=== PATIENT | male | born 1955 | race Caucasian/White ===

== ENCOUNTER 2020-09-03 11:25 | Outpatient (CLI) | payer MEDICARE, OTHER, SELFPAY ==
--- NOTE | ~2020-09-03 | XR_ITS ---
XR shoulder RT min 2V DATE: 09/03/2020 11:43 INDICATION: Right shoulder pain. No injury. TECHNIQUE: 4 views COMPARISON: None FINDINGS: Diffuse osteopenia. No fracture or dislocation, periosteal reaction or bone destruction or abnormal soft tissue calcification. Normal alignment at the right acromioclavicular and glenohumeral joints. There is mild dextroscoliosis of the upper thoracic spine as well as degenerative spurring. IMPRESSION: Osteopenia Dextro scoliosis and degenerative spurring of the upper thoracic spine Reviewed, dictated and finalized at location B. MENDER
== END 2020-09-03 11:26 | disposition home or self-care (01) ==
PROVIDERS: PCP Internal Medicine; Visit Provider Nurse Practitioner
DX: M85.811 Other specified disorders of bone density and structure, right shoulder (principal); M85.88 Other specified disorders of bone density and structure, other site
CPT/HCPCS: 73030

== ENCOUNTER 2020-09-09 08:10 | Outpatient (CLI) | payer MEDICARE, OTHER, SELFPAY ==
--- NOTE | ~2020-09-09 | MR_ITS ---
EXAMINATION: MR shoulder RT wo con DATE: 09/09/2020 09:09 INDICATION: Right shoulder pain and limited range of motion. TECHNIQUE: Magnetic resonance imaging (MRI) of the right shoulder was performed without intravenous c ontrast. Sequences included axial PD-weighted FS FSE, coronal oblique PD-weighted FS FSE, coronal obl ique T2-weighted FS FSE, sagittal PD-weighted FS FSE, and sagittal T1-weighted SE. COMPARISON: None. FINDINGS: Coracoacromial arch: The acromion undersurface is curved in morphology (type II). The coracoacromial ligament is normal. M ild acromioclavicular osteoarthritis. Rotator cuff: Moderate supraspinatus and infraspinatus tendinopathy with large full-thickness tear of the supraspin atus tendon and color near full-thickness tear of the infraspinatus tendon with suggestion of a few r esidual intact bursal sided infraspinatus tendon fibers which are of uncertain functional integrity. There is a small amount of residual frayed tendon material along the superior and middle facet footpl ates with the tear appearing to occur in the critical zone approximately 1 cm from the greater tubero sity footplate. The medial supraspinatus an infraspinatus tear margins are retracted approximately 1. 5 cm medially to approximately the level of the lateral rim of the acromion. The teres minor tendon i s normal. Mild subscapularis tendinopathy without discrete tear. Normal rotator cuff muscle bulk and signal. Biceps tendon, glenoid labrum and glenohumeral cartilage: Moderate tendinopathy and longitudinal split tearing of the long head biceps tendon centered at the j unction of the intra-articular and extra-articular portions of the tendon. There is a tear of the 12: 00-10:30 position of the posterior superior glenoid labrum. Glenohumeral cartilage is normal. Fluid: Physiologic amount of fluid in the glenohumeral joint and biceps tendon sheath. No loose osteochondra l bodies. Fluid in the subacromial/subdeltoid bursa likely arising from the glenohumeral joint space and extending through the full-thickness rotator cuff tear. The fluid also tracks medially along the periphery of the supraspinatus and infraspinatus muscle bellies. Bones: Cystic changes and marrow edema along the superior facet and more prominently along the middle facet of the greater tuberosity. Marrow signal is otherwise normal. No fracture or pathologic marrow replac ing process. IMPRESSION: 1. Likely relatively recent full-thickness tear at the critical zone of the supraspinatus tendon whic h extends posteriorly with full or near full-thickness infraspinatus tendon tear with possibly a few residual intact bursal sided infraspinatus tendon fibers. 2. SLAP tear at the posterior superior glenoid labrum. 3. Moderate tendinopathy and longitudinal split tearing of the long head biceps tendon. Reviewed, dictated and finalized at location A. ING MACHINE TENDER IMPRESSION: 1. Likely relatively recent full-thickness tear at the critical zone of the sup raspinatus tendon which extends posteriorly with full or near full-thickness in fraspinatus tendon tear with possibly a few residual intact bursal sided infras pinatus tendon fibers. 2. SLAP tear at the posterior superior glenoid labrum. 3. Moderate tendinopathy and longitudinal split tearing of the long head biceps tendon.
== END 2020-09-09 08:11 | disposition home or self-care (01) ==
PROVIDERS: PCP Internal Medicine; Visit Provider Nurse Practitioner
DX: S43.431A Superior glenoid labrum lesion of right shoulder, initial encounter (principal); X58.XXXA Exposure to other specified factors, initial encounter
CPT/HCPCS: 73221

== ENCOUNTER → 2020-09-25 01:04 | Outpatient (CLI) | payer MEDICARE, OTHER, SELFPAY ==
[2020-09-25 18:53] LABS: SARS-CoV-2 RNA PCR Negative
== END ==
PROVIDERS: PCP Internal Medicine; Visit Provider Orthopaedic Surgery
DX: Z01.812 Encounter for preprocedural laboratory examination (principal); Z20.822 Contact with and (suspected) exposure to COVID-19
CPT/HCPCS: C9803; U0003; U0005

== ENCOUNTER 2020-09-25 08:52 | Outpatient (CLI) | payer MEDICARE, OTHER, SELFPAY ==
--- NOTE | 2020-09-25 | ECG_ITS ---
Measurements Intervals [place] Rate: 61 P: 53 MO: 269 QRS: -22 QRSD: 128 T: 8 QT: 442 QTc: 446 Interpretive Statements SINUS RHYTHM WITH FIRST DEGREE AV BLOCK INCOMPLETE RIGHT BUNDLE BRANCH BLOCK ABNORMAL ECG Electronically Signed On 09-25-2020 11:58:59 DIRECTOR MEDICAL WRITING by lAex Adler D.O.
[2020-09-25 10:05] LABS: Anion Gap 4 mmol/L (8-16); Blood Urea Nitrogen 18 mg/dL (9-20); Calcium 9.1 mg/dL (8.4-10.2); Carbon Dioxide 30 mmol/L (22-30); Chloride 102 mmol/L (98-107); Estimated Glomerular Filt Rate > 60; Glucose 115 mg/dL (75-110); Sodium 136 mmol/L (137-145)
== END 2020-09-25 08:53 | disposition home or self-care (01) ==
PROVIDERS: PCP Internal Medicine; Visit Provider Anesthesiology
DX: E11.9 Type 2 diabetes mellitus without complications (principal); Z01.818 Encounter for other preprocedural examination; I44.0 Atrioventricular block, first degree
CPT/HCPCS: 36415; 80048; 93005; C9803; U0003; U0005

== ENCOUNTER 2020-09-27 12:08 | Outpatient (CLI) | payer MEDICARE, OTHER, SELFPAY ==
[2020-09-27 12:35] LABS: Basophils Percent Auto 0.3 % (0.2-1.2); Eosinophils Absolute Auto 0.1 K/mm3 (0-0.3); Eosinophils Percent Auto 1.3 % (0-4.4); Hematocrit 42.1 % (42.0-52.0); Immature Granulocyte Absolute 0.04 K/mm3 (0.00-0.031); Immature Granulocyte Percent A 0.6 % (0-0.5); Lymphocytes Absolute Auto 1.47 K/mm3 (0.9-3.2); Lymphocytes Percent Auto 21.1 % (18.3-44.2); Mean Corpuscular HGB Conc 33.3 g/dl (32-36); Mean Corpuscular Hemoglobin 30.6 pg (26-34); Mean Corpuscular Volume 91.9 fl (80-100); Mean Platelet Volume 9.1 fl (7.4-10.4); Monocytes Absolute Auto 0.5 K/mm3 (0.1-0.6); Monocytes Percent Auto 7.3 % (2.6-8.5); Neutrophils Absolute Auto 4.9 K/mm3 (1.3-6.7); Neutrophils Percent Auto 69.4 % (45.5-73.1); Platelet Count Result 239 k/mm3 (150-375); Red Blood Count 4.58 M/mm3 (4.6-6.20); Red Cell Distribution Width 13.6 % (11.5-14.5)
[2020-09-27 12:51] LABS: Alanine Aminotransferase 25 U/L (4-50); Albumin Level 4.5 g/dL (3.5-5.1); Alkaline Phosphatase 118 U/L (38-126); Anion Gap 5 mmol/L (8-16); Aspartate Amino Transferase 27 U/L (17-59); Bilirubin,Total 0.4 mg/dL (0.2-1.3); Blood Urea Nitrogen 12 mg/dL (9-20); Calcium 9.1 mg/dL (8.4-10.2); Carbon Dioxide 29 mmol/L (22-30); Chloride 104 mmol/L (98-107); Estimated Glomerular Filt Rate > 60; Glucose 116 mg/dL (75-110); Potassium 4.6 mmol/L (3.4-5.0); Sodium 138 mmol/L (137-145)
[2020-09-27 13:21] LABS: Hemoglobin A1C 6.1 % (<5.7)
== END 2020-09-27 12:09 | disposition home or self-care (01) ==
LOC: ANHLAB 12:16
PROVIDERS: PCP Internal Medicine; Visit Provider Clinical Nurse Specialist
DX: E11.9 Type 2 diabetes mellitus without complications (principal)
CPT/HCPCS: 36415; 80053; 83036; 85025

== ENCOUNTER 2020-09-29 00:24 | Day surgery (SDC) | payer MEDICARE, OTHER, SELFPAY ==
[2020-09-24 12:06] VITALS: BMI 34.0
[2020-09-29] VITALS (7 sets, daily range): BP systolic 138–160; BP diastolic 81–95; PULSE 67–80; RESP 11–17; TEMP 35.8–36.3; O2SAT 93–99
--- NOTE | 2020-09-29 07:22 | WPDHPUPDATE1 ---
History and Physical Update Update Date/Time: 09/29/20 07:22 History and Physical has been reviewed, including an updated exam of the patient. There are NO changes in the patient's condition. Risks, benefits, and alternatives have been discussed and questions answered. Patient agrees to proceed with procedure.
--- NOTE | 2020-09-29 10:34 | WPDANESEPPF ---
Anes - Initial Pre Proc Eval Procedure: Operation Date: 09/29/20 12:00 Proposed Procedures p Right Open Rotator Cuff Repair Acromioplasty With Possible Bicep Tenodesis - Fawad Oliver MD Date/Time: 09/29/20 10:34 Surgeon: Fawad Oliver MD Pre Op Diagnosis: Right Rotator Cuff Tear Patient Data Age: 65 Gender: M Height: 1.75 m Weight: 104.33 kg Allergies Allergy/AdvReac Type Severity Reaction Status Date / Time No Known Allergies Allergy Verified 09/29/20 10:37 Home Medications Medication Instructions Recorded Confirmed Type morphine 15 mg immediate release 15 mg PO PRN PRN tablet 07/01/19 09/27/20 History tablet morphine 30 mg immediate release 30 mg PO PRN PRN tablet 07/01/19 09/27/20 History tablet aspirin 81 mg tablet,delayed 81 mg PO DAILY #90 tablet 04/21/20 09/27/20 Rx release metformin 500 mg tablet 500 mg PO DAILY #90 tablet 06/07/20 09/27/20 Rx omeprazole 20 mg capsule,delayed 20 mg PO DAILY #90 cap 06/07/20 09/27/20 Rx release lisinopril 20 mg tablet 20 mg PO DAILY #90 tablet 06/08/20 09/27/20 Rx chlorhexidine gluconate 4 % 1 applic TOPICAL ONCE #237 ml 09/23/20 09/27/20 Rx topical liquid amlodipine 5 mg PO QPM 09/24/20 09/27/20 History cholecalciferol (vitamin D3) 50 mcg PO DAILY 09/24/20 09/27/20 History ibuprofen 400 mg PO Q6H PRN 09/24/20 09/27/20 History Patient hx anesthesia problems: none Family hx anesthesia problems: none PMFSH Past Medical History Medical History (Updated 09/27/20 @ 14:37 by MICH Guy) Arthritis Back pain Fractured rib Full thickness rotator cuff tear Hearing loss Heart murmur Heartburn High cholesterol Hyperlipidemia Hypertension Mitral valve insufficiency Pulmonary embolism 03/19/2018 Type 2 diabetes mellitus Wears glasses Surgical History Surgical History History of appendectomy Family History Family History (Updated 09/23/20 @ 11:46 by Maggi Becker RT(R)) Mother Diabetes mellitus Father Hypertension Acute myocardial infarction, Onset Age: 55 Other Depression Heart disease High cholesterol Social History Social History (Updated 09/23/20 @ 11:46 by Maggi Becker RT(R)) Smoking packs per day: 2 Smoking cigarettes per day: 40.0 Years smoked: 10 Smoking pack-years: 20.00 Smoking status: Former smoker Tobacco type: cigarettes and cigars Smoking end date: 07/16/79 Alcohol intake: current Drinks per week: 2 Substance use: former Substance use type: marijuana Last use: 1969 Living arrangements: with family Gender identity (if verbalized by the patient): Male Spiritual care concerns: No Anes - Eval Final PreProcedure Day of Procedure 09/29/20 10:34 Patient weight: obese Heart: regular rate and rhythm Lungs: clear to auscultation and normal air movement Airway: Mallampati scale class II Neurological: alert and oriented Last oral intake: >/= 8 hours ASA classification: III Emergent: no Anesthetic plan: proceed Anesthesia type and monitoring: general ETT and standard monitoring Informed Consent: The patient's anesthetic plan and its attendant risks and benefits were discussed with the patient/family/POA. Questions were solicited and answers provided to the satisfaction of the patient/family/POA.
--- NOTE | 2020-09-29 10:35 | WPDANESPNB ---
Anes - Peripheral Nerve Block Date/Time: 09/29/20 10:35 I have discussed with the patient/family/POA the placement of a peripheral nerve block for post-operative pain management, including associated risks, benefits, complications, and side effects. Alternative methods of post-operative analgesia were detailed. Questions were solicited and answers provided to the satisfaction of the patient/family/POA. Time-Out: A pre-procedural Time-Out was completed immediately before starting the procedure and confirmed: Patient Identification, Site, Procedure, Patient Position and the Availability of Requisite Equipment. Clinical Indications: Acute post-operative pain management requested by the operative surgeon. Nerve Block Insertion Note Anes-nerve block: interscalene right Patient position: supine Skin prep: chlorhexidine Needle: 22 gauge, stimulating, insulated echogenic needle. Needle length: 50 mm Technique: ultrasound Injectate: bupivacaine 0.5% with epi 5 mcg/ml (30cc- no epi) Observations: tolerated well Complications: none Procedure start time:: 1154 Procedure end time:: 1158
[2020-09-29] MEDS: CELECOXIB 200 MG CAPSULE PO (10:50)
[2020-09-29] MEDS: ACETAMINOPHEN 500 MG TABLET 1000 MG PO (10:50)
[2020-09-29] MEDS: LACTATED RINGERS 1,000 ML 30 ML IV CONT ×2 (11:00→16:23)
[2020-09-29 11:20] LABS: Glucose Point of Care 127 (65-105)
[2020-09-29] MEDS: ceFAZolin 2 GM/D5W 50 ML 2 GM/50 ML BAG IVPB (12:52)
--- NOTE | 2020-09-29 16:10 | PM.PROC ---
Procedure Note - Detailed Date of procedure: 09/29/20 Pre-op diagnosis: Right Rotator Cuff Tear Post-op diagnosis: same Procedure performed: REPAIR OF RIGHT ROTATOR CUFF Description of procedure: THE PATIENT WAS TAKEN TO THE OPERATING ROOM AND THEN INTUBATED AND PLACED IN THE BEACH CHAIR POSITION. THE RIGHT UPPER EXTREMITY WAS PREPPED AND DRAPED IN THE NORMAL STERILE FASHION. AN INCISION WAS MADE IN BETWEEN THE TESSA-LATERAL ACROMION AND THE AC JOINT. THE AC JOINT WAS INCISED. THERE WAS SEVERE DJD TO THE AC JOINT. A DISTAL CLAVICLE EXCISION WAS PREFORMED REMOVING ABOUT O.5 CM FRO THE DISTAL CLAVICLE. OSTEOPHYTES WERE REMOVED FROM THE UNDER SURFACE OF THE DISTAL CLAVICLE WELL. THE WOUND WAS IRRIGATED. THE CAPSULE WAS APPROXIMATED WITH 0 VICRYL SUTURE. NEXT THE DELTOID FASCIA WAS IDENTIFIED. A MINI OPEN INCISION WAS MADE THROUGH THE DELTOID MUSCLE EXPOSING THE SUBACROMIAL SPACE. A LIMITED ACROMIOPLASTY WAS PREFORMED. THERE WAS AN EXTENSIVE AMOUNT OF BURSITS AND SCAR TISSUE ABOUT THE CUFF SURFACE ABD THE SUB ACROMIAL SPACE. DIGITAL ADHESIOLYSIS WAS PREFORMED AND BURSECTOMY WELL. THE ROTATOR CUFF WAS IDENTIFIED. THERE WAS A FULL THICKNESS TEAR. THE CUFF WAS COMPLETELY DETACHED FROM THE GREATER TUBEROSITY. THE BICEPS TENDON WAS IDENTIFIED. IT WAS INTACT. THERE WAS NO TEAR OR SIGNIFICANT FRAYING. THE GREATER TUBEROSITY WAS DEBRIDED TO BLEEDING BONE. 3 ARTHREX 5.5 SUTURE ANCHORS WERE PLACED IN TO GOOD BONE AND HAD VERY GOOD BITES. EUSEBIO-OSCAR TYPE REPAIRS WERE DONE TO THE ROTATOR CUFF AND THERE WAS GOOD APPROXIMATION TO THE GREATER TUBEROSITY. THE REPAIR WAS EXCELLENT. THERE WAS NO IMPINGEMENT ON THE REPAIR FROM THE ACROMION WITH RANGE OF MOTION. THE WOUND WAS IRRIGATED WITH COPIOUS AMOUNTS OF ANTIBIOTIC SOLUTION. THE DELTOID MUSCLE WAS REPAIRED WITH #2 FIBER WIRE AND NUMBER 1 VICRYL SUTURE. THE SUBCUTANEOUS LAYER WAS APPROXIMATED WITH 2-0 VICRYL. THE SKIN WAS APPROXIMATED WITH 3-0 QUIL AND DERMABOND. STERILE DRESSING WAS APPLIED. PATIENT WAS EXTUBATED. Anesthesia: GETA Surgeon: Fawad Oliver MD Estimated blood loss (mL): 20 Complications: No immediate complications Condition: stable Disposition: PACU
[2020-09-29 16:37] LABS: Glucose Point of Care 82 (65-105)
== END 2020-09-29 17:45 | disposition home or self-care (01) ==
PROVIDERS: PCP Internal Medicine; Visit Provider Orthopaedic Surgery
PROC: (CPT 23420; principal; 2020-09-29 12:00)
DX: M75.121 Complete rotator cuff tear or rupture of right shoulder, not specified as traumatic (principal); G89.18 Other acute postprocedural pain; I10 Essential (primary) hypertension; E78.5 Hyperlipidemia, unspecified; E11.9 Type 2 diabetes mellitus without complications; I34.0 Nonrheumatic mitral (valve) insufficiency; Z86.711 Personal history of pulmonary embolism; Z79.82 Long term (current) use of aspirin; Z87.891 Personal history of nicotine dependence; E66.9 Obesity, unspecified; Z68.32 Body mass index [BMI] 32.0-32.9, adult; Z79.84 Long term (current) use of oral hypoglycemic drugs
CPT/HCPCS: 23420; 23120; 64415; 82948; A9270; C1713; J0330; J0690; J2250; J2405; J2704; J3010; J7120

== ENCOUNTER 2020-10-21 15:04 | Outpatient (CLI) | payer MEDICARE, OTHER, SELFPAY | END 2020-10-21 15:05 | disposition home or self-care (01) | LOC: ANHCOVIDVC 15:04 | PROVIDERS: PCP Internal Medicine | DX: Z23 Encounter for immunization (principal) | CPT/HCPCS: 0001A; 91300 ==

== ENCOUNTER 2020-11-11 14:37 | Outpatient (CLI) | payer MEDICARE, OTHER, SELFPAY | END 2020-11-11 14:38 | disposition home or self-care (01) | LOC: ANHCOVIDVC 14:37 | PROVIDERS: PCP Internal Medicine | DX: Z23 Encounter for immunization (principal) | CPT/HCPCS: 0002A; 91300 ==

== ENCOUNTER 2021-01-10 08:00 | Outpatient (RCR) | payer MEDICARE, OTHER, SELFPAY ==
[2020-10-13 08:30] VITALS: BP_SYST 62
--- NOTE | 2020-10-13 10:02 | PTOPEVAL ---
INITIAL PHYSICAL THERAPY EVALUATION and PLAN OF CARE Thank you for referring Ronnell Mcbride to [facility].? Hakan is scheduled to be seen for physical therapy? 2-3x/week for 3 weeks, 2x/wk x 3 wks. Please review, sign, date and return this plan of care ZAC. I agree with and certify that the following plan of care is medically necessary. Referring Physician Date Admitting Provider: Attending Provider: Fawad Oliver MD Referring Provider: *PT Outpatient Evaluation Start: 10/13/20 08:31 Freq: Status: Active Protocol: Document 10/13/20 08:30 ANGÉLICA (Rec: 10/13/20 10:01 ANGÉLICA [id number]) Therapy Assessment Status Assessment Status Assessment Status Evaluation Outpatient Past Medical History Past Medical History Source of Past Medical History Recalled from Previous Visit, Confirmed with Patient/Family Neurological History Hx Neurological Disorders No Significant History Cardiovascular History Hx Hypercholesterolemia Yes Hx Hypertension Yes Hx Other Cardiac Disorders Yes: DR PANDYA EVERY 6 MONTHS Respiratory History Hx Pulmonary Embolism Yes: 03/19/18 Gastrointestinal History Hx Appendectomy Yes Hx Gastroesophageal Reflux Disease Yes Genitourinary History Hx Other Genitourinary Disorders Yes: FREQUENT URINATION Musculoskeletal History Hx Arthritis Yes: GENERALIZED Hx Back Pain Yes: CHRONIC BACK PAIN-PAIN MANAGEMENT ONCE A MONTH Hx Crutches or Walker Use Yes: CRUTCHES Query Text:If Yes, Enter Crutches, Walker, or Both in the Comment Hx Fractures Yes: 1972 FX LT ANKLE Hx Orthopedic Surgery Yes: R RCR with DCE 09/29/2020 Hx Other Musculoskeletal Disorders Yes: RT ROTATOR CUFF TEAR Hematological History Hx Hematological Disorders No Significant History Endocrine History Hx Diabetes Yes HEENT History Hx Other HEENT Disorders Yes: READING GLASSES.[employer]IL[employer] HEARING AIDS Integumentary History Hx Skin Disorders No Significant History Reproductive History Hx Reproductive Disorders No Significant History Psychosocial History Hx Psychiatric Disorders No Significant History Pain History Has Past Pain Affected Your Daily Life Yes: BACK PAIN History of Long-Term Prescription Pain Yes: 5 YEARS Medication Use (Opiates) Anesthesia History Hx Anesthesia Reactions No Significant History Evaluation Information Problem Diagnosis s/p R RTC repair with distal clavicle excision Onset 09/29/2020 Cause fall 09/02/2020 Subjective Information Fell onto R shoulder - was Query Text: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 Not Family
[2020-11-08 08:21] VITALS: BP_SYST 94
[2020-11-24 08:03] VITALS: BP_SYST 105
--- NOTE | 2020-11-24 09:07 | PTOPEVAL ---
PHYSICAL THERAPY RE-EVALUATION and UPDATED PLAN OF CARE Thank you for referring Ronnell Mcbride to [facility].? Hakan is making progress towards goals - but has not met goals. He will continue to benefit from skilled PT for further gains with ROM, strength, and function. Hakan is scheduled to be seen for physical therapy? 2x/week for 4 weeks. Please review, sign, date and return this plan of care ZAC. I agree with and certify that the following plan of care is medically necessary. Referring Physician Date Admitting Provider: Attending Provider: Fawad Oliver MD Referring Provider: Therapy Assessment Status Assessment Status Assessment Status Re-evaluation Pain Assessment Self Report Pain Assessment Right Shoulder(s) Reported Pain Level 8 Pain Description Soreness,Tightness Other Pain Description stiff Lowest Pain Intensity 5 Greatest Pain Intensity 10 Upper Extremity Range of Motion Scapular/ Shoulder Range of Motion Right Shoulder Flexion - Active 112 Shoulder Flexion - Passive 132 Shoulder Extension - Active 45 Shoulder Extension - Passive 60 Shoulder Abduction - Active 95 Shoulder Abduction - Passive 105 Shoulder Medial Rotation - Active 45 Shoulder Medial Rotation - Passive 65 Shoulder Lateral Rotation - Active 22 Shoulder Lateral Rotation - Passive 32 Scapular/Shoulder Range of Motion ER in neutral - active - 37 Comments deg passive 67 passive ROM done in standing pulleys - flexion 135 abduction 115 Upper Extremity Muscle Strength Testing Scapular/Shoulder Right Shoulder Flexion Strength 3 Fair Shoulder Extension Strength 4 Good Shoulder Abduction Strength 3 Fair Shoulder Medial Rotation Strength 4+ Good + Shoulder Lateral Rotation Strength 3 Fair Shoulder Strength Comments reduced range motion used PT Clinical Summary Clinical Summary Protocol: PTEVCODE PT Clinical Summary SPADI pain score - 96% disability score - 73% total score - 82% Hakan is making progress towards goals - but has not reached goals set. Still reduced ROM R g-h jt - passive and active. He is gaining scapular, deltoid, and RTC strength. Pain levels still remain elevated and still decreased functional abilities with R UE above waist level. He will continue to benefit from skilled PT to promote further ROM, strength and functi
--- NOTE | 2020-12-22 09:42 | PCPTNOTE ---
Patient called & cancelled scheduled appointment this date due to inability to make appointment.
[2020-12-27 08:05] VITALS: BP_SYST 123
--- NOTE | 2020-12-27 12:18 | PTOPEVAL ---
PHYSICAL THERAPY RE-EVALUATION and UPDATED PLAN OF CARE Thank you for referring Ronnell Mcbride to [facility].? Hakan has been seen x 24 visits. He continues to make ROM and scapular strength gains. He still needs to increased deltoid and RTC strength as well as become more functional with activities at shoulder level and above. He is scheduled to continue with physical therapy? 2x/week for 4 weeks. Please review, sign, date and return this plan of care ZAC. I agree with and certify that the following plan of care is medically necessary. Referring Physician Date Admitting Provider: Attending Provider: Fawad Oliver MD Referring Provider: Therapy Assessment Status Assessment Status Assessment Status Re-evaluation Evaluation Information Problem Diagnosis s/p R RTC repair with distal clavicle excision Subjective Information Hakan reports that he still has Query Text:As Reported By Patient/ a lot of soreness and Family tightness with R shoulder. Decreased ability to perform activities at shoulder height and overhead, but okay below shoulder height and at waist level. 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 Pain Assessment Self Report Pain Assessment Right Shoulder(s) Reported Pain Level 8 Pain Description Soreness,Tightness Lowest Pain Intensity 5 Greatest Pain Intensity 10 Pain Aggravating Factors Exercise/Activity Pain Behaviors None Additional Pain Comments some grimacing with end range activities Upper Extremity Range of Motion Scapular/ Shoulder Range of Motion Right Shoulder Flexion - Active 120 Shoulder Flexion - Passive 135 Shoulder Extension - Active 50 Shoulder Abduction - Active 123 Shoulder Abduction - Passive 123 Shoulder Medial Rotation - Active 65 Shoulder Medial Rotation - Passive 80 Shoulder Medial Rotation - Active L1 Query Text:Reach Behind the Back Shoulder Lateral Rotation - Active 34 Shoulder Lateral Rotation - Passive 45 Shoulder Lateral Rotation - Active back of neck Query Text:Reach Behind the Head Scapular/Shoulder Range of Motion ER in neutral - active - 35 Comments deg passive 42 passive ROM done in standing except for rotation which was done in supine pulleys - flexion 150 abduction 134 with active motion - altered g -h jt mechanics - increase with sc
--- NOTE | 2021-01-10 12:58 | PCPTNOTE ---
This treatment is being continued on visit number [id number]. Please see documentation on both accounts to view progress. Completed interventions, outcomes, and problems have been marked as Inactive to facilitate the copying of the Care plan routine for recurring accounts.
== END 2021-01-10 09:09 | disposition still patient (30) ==
LOC: ANHHIPT 08:00
PROVIDERS: PCP Internal Medicine; Visit Provider Orthopaedic Surgery
DX: Z47.89 Encounter for other orthopedic aftercare (principal)
CPT/HCPCS: 97035; 97110; 97140; 97161

== ENCOUNTER 2021-01-19 08:00 | Outpatient (RCR) | payer MEDICARE, OTHER, SELFPAY ==
[2021-01-10 09:09] VITALS: BP_SYST 123
--- NOTE | 2021-01-10 12:59 | PCPTNOTE ---
The treatment documented on this account is a continuation of the treatment documented on visit number [id number]. Please see documentation on both accounts to view progress. The Plan of Care has been transitioned and updated within the new V#. I have addressed and agree with the discipline specific Problems, Interventions, and Goals for the current certification period. Completed interventions, outcomes, and problems have been marked as Inactive to facilitate the copying of the Care plan routine for recurring accounts.
[2021-01-19 08:05] VITALS: BP_SYST 137
--- NOTE | 2021-01-19 09:04 | PTOPEVAL ---
PHYSICAL THERAPY DISCHARGE SUMMARY Thank you for referring Ronnell Mcbride to [facility].? Ronnell has been seen x 30 visits. He has progressed well towards goals set, but did not fully reach all of the goals. He is ready for d/c from PT to HEP. I agree with Ronnell's discharge from PT. Referring Physician Date Admitting Provider: Attending Provider: Fawad Oliver MD Referring Provider: Therapy Assessment Status Assessment Status Assessment Status Discharge Evaluation Information Problem Diagnosis s/p R RTC repair with distal clavicle excision Subjective Information Hakan reports that his R Query Text:As Reported By Patient/ shoulder feels tight, still Family hurts when goes out of range . States that he is still unable to sleep on R side, but that he can do most everything that he needs to do with the R arm. Still working on stretching arm at work with pressure wand. Pain Assessment Timing of Pain Assessment Timing of Pain Assessment Assessment Pain Scale Pain Scale Used Numeric (1 - 10) Self Report Pain Assessment Right Shoulder(s) Reported Pain Level 0 Lowest Pain Intensity 0 Greatest Pain Intensity 8 Additional Pain Comments stretching behind back is the worst position Upper Extremity Range of Motion Scapular/ Shoulder Range of Motion Right Shoulder Flexion - Active 130 Shoulder Flexion - Passive 155 Shoulder Extension - Active 42 Shoulder Abduction - Active 122 Shoulder Abduction - Passive 137 Shoulder Medial Rotation - Active 56 Shoulder Medial Rotation - Passive 70 Shoulder Medial Rotation - Active L5 Query Text:Reach Behind the Back Shoulder Lateral Rotation - Active 38 Shoulder Lateral Rotation - Passive 52 Shoulder Lateral Rotation - Active back of head Query Text:Reach Behind the Head Scapular/Shoulder Range of Motion ER in neutral - 47 deg Comments Upper Extremity Muscle Strength Testing Scapular/Shoulder Right Shoulder Flexion Strength 3+ Fair + Shoulder Extension Strength 5 Normal Shoulder Abduction Strength 3 Fair Shoulder Medial Rotation Strength 5 Normal Shoulder Lateral Rotation Strength 4+ Good + Shoulder Strength Comments supraspinatus - 3 infraspinatus - 3+ Palpation Assessment Palpation Palpation No tenderness at R supraspinatus or R infraspinatus tendons. Increase tenderness at R long
== END 2021-01-21 15:35 | disposition home or self-care (01) ==
LOC: ANHHIPT 08:00
PROVIDERS: PCP Internal Medicine; Visit Provider Orthopaedic Surgery
DX: Z47.89 Encounter for other orthopedic aftercare (principal)
CPT/HCPCS: 97110; 97140

== ENCOUNTER 2021-12-28 09:02 | Outpatient (CLI) | payer MEDICARE, OTHER, SELFPAY ==
--- NOTE | ~2021-12-28 | XR_ITS ---
XR hip LT 2V w AP pelvis DATE: 12/28/2021 09:21 INDICATION: Left hip pain TECHNIQUE: AP pelvis. AP and lateral views of left hip COMPARISON: None FINDINGS: No pelvic fracture or bone destruction is detected. The pubic symphysis and sacroiliac join ts are intact. There is bilateral hip osteoid arthritis, moderate on the right, severe on the left, including promin ent joint space narrowing and spurring at the left hip joint. No fracture or dislocation, avascular necrosis or bone destruction of the left hip is noted. IMPRESSION: Bilateral hip osteophytes, severe on the left Reviewed, dictated and finalized at location A.
== END 2021-12-28 09:03 | disposition home or self-care (01) ==
PROVIDERS: PCP Internal Medicine; Visit Provider Nurse Practitioner Family
DX: M16.0 Bilateral primary osteoarthritis of hip (principal)
CPT/HCPCS: 73502

== ENCOUNTER 2023-02-22 09:18 | Outpatient (CLI) | payer MEDICARE, OTHER, SELFPAY ==
[2023-02-22 16:06] LABS: Basophils Absolute Auto 0.1 K/mm3 (0.0-0.1); Basophils Percent Auto 0.9 % (0.2-1.2); Eosinophils Absolute Auto 0.3 K/mm3 (0-0.3); Eosinophils Percent Auto 3.5 % (0-4.4); Hematocrit 38.6 % (42.0-52.0); Hemoglobin 11.9 g/dL (14.0-18.0); Immature Granulocyte Absolute 0.04 K/mm3 (0.00-0.031); Immature Granulocyte Percent A 0.5 % (0-0.5); Immature Platelet Fraction Pct 2.1 % (0.9-11.2); Lymphocytes Absolute Auto 1.09 K/mm3 (0.9-3.2); Lymphocytes Percent Auto 14.8 % (18.3-44.2); Mean Corpuscular HGB Conc 30.8 g/dl (32-36); Mean Corpuscular Volume 97.2 fl (80-100); Mean Platelet Volume 9.8 fl (7.4-10.4); Monocytes Absolute Auto 0.5 K/mm3 (0.1-0.6); Neutrophils Absolute Auto 5.4 K/mm3 (1.3-6.7); Neutrophils Percent Auto 73.3 % (45.5-73.1); Nucleated Red Blood Cells Absolute Auto 0.1 K/mm3 (0.0-0.012); Nucleated Red Blood Cells Perc 0.8 % (0.0-0.2); Platelet Count Result 352 k/mm3 (150-375); Red Blood Count 3.97 M/mm3 (4.6-6.20); Red Cell Distribution Width 14.8 % (11.5-14.5); White Blood Count 7.4 K/mm3 (4.5-10.0)
[2023-02-22 16:30] LABS: Alanine Aminotransferase 31 U/L (6-50); Albumin Level 3.9 g/dL (3.5-5.1); Alkaline Phosphatase 84 U/L (38-126); Anion Gap 4 mmol/L (8-16); Aspartate Amino Transferase 44 U/L (17-59); Bilirubin,Total 0.3 mg/dL (0.2-1.3); Blood Urea Nitrogen 16 mg/dL (9-20); Calcium 8.9 mg/dL (8.4-10.2); Carbon Dioxide 31 mmol/L (22-30); Chloride 101 mmol/L (98-107); Estimated Glomerular Filt Rate > 60; Glucose 108 mg/dL (65-110); Potassium 4.7 mmol/L (3.4-5.0); Sodium 136 mmol/L (137-145)
[2023-02-22 16:35] LABS: Creatinine Urine 44.2 mg/dL
[2023-02-22 16:40] LABS: MALB Creatinine Ratio 33.7 mg/g (0-30); Microalbumin Urine Random 14.9 mg/L (0-16.7)
[2023-02-22 16:53] LABS: Platelet Estimate Adequate (Adequate); Schistocytes None Seen (NORMAL)
[2023-02-22 18:26] LABS: Iron 81 ug/dL (49-181)
[2023-02-22 18:46] LABS: Percent Iron Saturation 20 % (20-50)
[2023-02-22 20:55] LABS: Hemoglobin A1C 6.7 % (<5.7)
== END 2023-02-22 09:19 | disposition home or self-care (01) ==
PROVIDERS: PCP Internal Medicine; Visit Provider Nurse Practitioner
DX: E11.9 Type 2 diabetes mellitus without complications (principal); D64.9 Anemia, unspecified
CPT/HCPCS: 36415; 80053; 82043; 82728; 83036; 83540; 83550; 85025; 85055

== ENCOUNTER → 2023-06-19 10:57 | Outpatient (CLI) | payer MEDICARE, OTHER, SELFPAY ==
--- NOTE | ~2023-06-19 | CT_ITS ---
CT Scan of the Chest without Contrast: Clinical Indication: Lower respiratory infection Technique: Contiguous sections were acquired throughout the chest without intravenous contrast. Dose reduction technique was used on this scan by utilizing automated exposure control and iterative recon struction technique. The dose-length product (DLP) was 649.51 mGy-cm. Findings: There is no evidence of any significant mediastinal, hilar or axillary lymphadenopathy. The mediastin al soft tissues appear normal. There is no evidence of pleural or pericardial effusion. The lungs are clear. No pulmonary nodules or infiltrates are noted. Images through the upper abdomen reveal diffuse fatty infiltration of the liver. Impression: Clear lungs. Diffuse fatty infiltration of liver. Reviewed, dictated and finalized at location M. ATIONS SUPERVISOR 2ND SHIFT Impression: Clear lungs. Diffuse fatty infiltration of liver.
== END ==
PROVIDERS: PCP Clinical Nurse Specialist; Visit Provider Clinical Nurse Specialist
DX: J22 Unspecified acute lower respiratory infection (principal); K76.0 Fatty (change of) liver, not elsewhere classified
CPT/HCPCS: 71250

== ENCOUNTER 2024-01-15 10:15 | Outpatient (RCR) | payer OTHER, SELFPAY ==
--- NOTE | 2023-10-19 09:10 | OTOPEVAL1 ---
Assessment and note entered by Toro Gunter, OTR/Pearl, CHT Evaluation Information Diagnosis S52.201A, S42.294A Onset 09/30/23 Subjective Information Dx: Closed fracture of shaft of right ulna, Closed nondisplaced fracture of proximal end of right humerus s/p ORIF of the ulna. Pt follows up with ortho on Sunday 10/22. Pt to keep arm in splint until then. Pt reports falling from a ladder at work on . He was hospitalized ~5 days. He reports severe pain. He is sleeping in a recliner. States he has been keeping his hand moving. Reported Pain Level Pain Score 8/10, (R) shoulder Assessment OT Clinical Summary Patient referred to OT s/p right proximal humerus fx and right proximal ulna fx. He presents today in a sling and right forearm splint. The forearm splint is to be kept in place until he follows up with ortho next week. Initiated phase I of humerus protocol - pendulums, scapular ROM, and external rotation. Educated on finger ROM and elevation of the UE to help with swelling. Patient to continue to follow up with skilled therapy to progress his HEP, continued therapeutic exercise, modalities, manual therapy, and therapeutic activities to facilitate improved functional use of the right UE and reduced pain. Plan of Care Interventions Therapeutic Exercise,Manual Therapy,Neuro Re- education,Therapeutic Activities,Hot Pack/Cold Pack,Electrical Stimulation,Check Out for Orthotic /Pr OT Services Indicated Yes Treatment Frequency and 1-2x/week for 10 visits Duration These treatments will address the objective and functional deficits as defined above. The patient will be advanced safely and appropriately in order for the patient to progress towards his/her prior level of function. Additional exercises will be introduced and as well as a comprehensive home exercise program upon discharge, if needed, ?to ensure carryover of functional gains achieved in the clinic. This treatment plan has been reviewed and agreement upon by the patient.
--- NOTE | 2023-10-19 09:10 | OPREHPOC ---
Outpatient Therapy Plan of Care This is a Multidisciplinary Plan of Care that may contain components documented by all disciplines (PT, OT, and ST.) OT Problem 1 OT Problem #1 Knowledge Deficit OT Goal 1 Goal 1. Patient to be independent with HEP. Target Visit 10 OT Problem 2 OT Problem #2 Pain OT Goal 1 Goal 1. Patient to be independent with non-medication pain management: - ROM - heat/ice - rest - elevation Target Visit 10 OT Problem 3 OT Problem #3 Impaired Range of Motion OT Goal 1 Goal 1. Patient to increase functional ROM of the (R) shoulder: - shoulder flexion to 90 deg. - shoulder abduction to 90 deg. - shoulder external rotation to be able to touch the back of his head - shoulder internal rotation to be able to touch his low back/sacral area ----Per ortho release/recommendations for the right forearm---- 2. Increase active ROM of the (R) forearm: - supination to 45 deg. - pronation to 45 deg. Target Visit 10 OT Problem 4 OT Problem #4 Impaired Strength OT Goal 1 Goal 1. Be able to complete gross band cutter strengthening with the right hand with yellow theraputty x5 minutes without pain. Target Visit 10
--- NOTE | 2023-12-03 14:48 | OTOPPROG ---
Assessment and note entered by Toro Gunter, OTZulay/Pearl, CHT Evaluation Information Assessment Status Progress Diagnosis S52.201A, S42.294A Onset 09/30/23 Subjective Information Patient has been participating in OT x8 weeks. He reports functional progress in the right UE, reporting that he is now able to use the right hand to feed himself and hold/drink from a coffee cup. 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 Notes deficits with raising the arm and reaching behind the back. Assessment OT Clinical Summary Patient referred to OT s/p right proximal humerus fx and right proximal ulna fx. He has made excellent progress with therapy so far. Today he is able to flex the shoulder 100 degrees and externally rotate to be able to touch the back of his head. Shoulder extension improved to 45, abduction to 75 degrees. He demonstrates limitations into internal rotation, not being able to lay the hand on the low back. Elbow flexion/ extension and forearm pronation are WNL. Supination measuring 45 degrees, which is 15 degrees less than the unaffected side. Wrist/hand ROM is WFL with some residual end range tightness. Patient's HEP has progressed to active, active- assisted, passive, and strengthening for the shoulder. He completes stretches with a cane multiple times a day. Therapy has progressed to all strengthening distally and he is tolerating this well. He continues to demonstrate limitations with gross weakness, stiffness, and pain which is restricting return of functional use. Continued follow up with skilled therapy indicated to continue to progress his HEP, continued therapeutic exercise, modalities, manual therapy, and therapeutic activities to facilitate improved functional use of the right UE and reduced pain. Plan of Care Interventions Therapeutic Exercise,Manual Therapy,Neuro Re- education,Therapeutic Activities,Hot Pack/Cold Pack,Electrical Stimulation OT Services Indicated Yes Treatment Frequency and 1-2x/week for 8 visits Duration These treatments will address the objective and functional deficits as defined above. The patient will be advanced safely and appropriately in order for the patient to progress towards his/her prior level of function. Additional exercises will be introduced and as well as a comprehensive home exercise program upon discharge, if needed, ?to ensure carryover of functional gains achieved in the clinic. This treatment plan has been reviewed and agree
--- NOTE | 2023-12-03 14:49 | OPREHPOC ---
Outpatient Therapy Plan of Care This is a Multidisciplinary Plan of Care that may contain components documented by all disciplines (PT, OT, and ST.) OT Problem 1 OT Problem #1 Knowledge Deficit OT Goal 1 Goal 1. Patient to be independent with HEP. ---OT POC UPDATE 12/03/23--- 1. Met, continue as HEP is progressed. Target Visit 20 OT Problem 2 OT Problem #2 Pain OT Goal 1 Goal 1. Patient to be independent with non-medication pain management: - ROM - heat/ice - rest - elevation ---OT POC UPDATE 12/03/23--- 1. Met, continue to address and treat pain Target Visit 20 OT Problem 3 OT Problem #3 Impaired Range of Motion OT Goal 1 Goal 1. Patient to increase functional ROM of the (R) shoulder: - shoulder flexion to 90 deg. - shoulder abduction to 90 deg. - shoulder external rotation to be able to touch the back of his head - shoulder internal rotation to be able to touch his low back/sacral area ----Per ortho release/recommendations for the right forearm---- 2. Increase active ROM of the (R) forearm: - supination to 45 deg. - pronation to 45 deg. ---OT POC UPDATE 12/03/23--- 1. Patient is progressing with the shoulder, met for shoulder flexion and external rotation, but continues to have limitations into abduction and internal rotation 2. Met Target Visit 20 OT Problem 4 OT Problem #4 Impaired Strength OT Goal 1 Goal 1. Be able to complete gross computer forensic specialist strengthening with the right hand with yellow theraputty x5 minutes without pain. ---OT POC UPDATE 12/03/23--- 1. Met. Upgrade goal: Patient to increase (R) computer forensic specialist
--- NOTE | 2024-01-07 09:05 | OTOPPROG ---
Assessment and note entered by Toro Gunter, JOSE/Pearl, CHT OT Progress Update 01/07/24 Assessment Status Progress Diagnosis S52.201A, S42.294A Onset 09/30/23 Subjective Information Patient has been participating in OT x12 weeks. He reports functional progress in the right UE, reporting he has been able to use the arm for heavier tasks, lifting heavier weight, using a drill, etc. He can lift his trash bag out of the trash can (a month ago his son was coming over to take up his trash). He reports limitations with overhead tasks and being able to internally rotate the shoulder to use the right hand to thread his belt through his belt loops. Overall he is reports having less pain, but he can get his pain up to 10/10 if he really pushes the shoulder . Shoulder flexion improved from 100* to 115* Shoulder extension improved from 45* to 55* Shoulder abduction improved from 75* to 115* Shoulder external rotation remained unchanged, patient able to lay right hand on the back of his head Shoulder internal rotation remained unchanged, patient able to lay right hand on the right buttocks, but not the low back yet Elbow, forearm, wrist, and hand ROM is WFL (R) shoulder flexion and abduction strength improved to 4-/5 (R) shoulder extension and adduction strength improved to 4/5 (R) elbow and forearm strength improved to 4+/5 (R) wrist strength improved to 4+/5 (R) care professional strength improved from 54 to 78 lbs. Assessment OT Clinical Summary Patient referred to OT s/p right proximal humerus fx and right proximal ulna fx. He has made excellent progress with therapy so far. Today he is able to flex the shoulder 115 degrees, abduct the shoulder 115 degrees, which has provided improved functional right UE use for overhead ADLs as long as they are light. He continues to demonstrate residual shoulder stiffness and weakness that limits heavier lifting above shoulder height. Shoulder internal and external rotation continue to present with limitations, limiting his ability to place his wallet in his back right pocket. Distally, the elbow
--- NOTE | 2024-01-07 09:05 | OPREHPOC ---
Outpatient Therapy Plan of Care This is a Multidisciplinary Plan of Care that may contain components documented by all disciplines (PT, OT, and ST.) OT Problem 1 OT Problem #1 Knowledge Deficit OT Goal 1 Goal 1. Patient to be independent with HEP. ---OT POC UPDATE 12/03/23--- 1. Met, continue as HEP is progressed. ---OT POC UPDATE 01/07/24--- 1. Met, continue as HEP is progressed Target Visit 25 OT Problem 2 OT Problem #2 Pain OT Goal 1 Goal 1. Patient to be independent with non-medication pain management: - ROM - heat/ice - rest - elevation ---OT POC UPDATE 12/03/23--- 1. Met, continue to address and treat pain ---OT POC UPDATE 01/07/24--- 1. Met, continue to address and treat pain Target Visit 25 OT Problem 3 OT Problem #3 Impaired Range of Motion OT Goal 1 Goal 1. Patient to increase functional ROM of the (R) shoulder: - shoulder flexion to 90 deg. - shoulder abduction to 90 deg. - shoulder external rotation to be able to touch the back of his head - shoulder internal rotation to be able to touch his low back/sacral area ----Per ortho release/recommendations for the right forearm---- 2. Increase active ROM of the (R) forearm: - supination to 45 deg. - pronation to 45 deg. ---OT POC UPDATE 12/03/23--- 1. Patient is progressing with the shoulder, met for shoulder flexion and external rotation, but continues to have limitations into abduction and internal rotation 2. Met ---OT POC UPDATE 01/07/24--- 1. UPGRADE: flexion and abduction to 130 degrees, UPGRADE external rotation to be able to touch C7, UPGRADE
== END 2024-01-17 23:59 | disposition home or self-care (01) ==
LOC: ANHHIOT 10:15
DX: S52.201D Unspecified fracture of shaft of right ulna, subsequent encounter for closed fracture with routine healing (principal); S42.294D Other nondisplaced fracture of upper end of right humerus, subsequent encounter for fracture with routine healing
CPT/HCPCS: 97110; 97140; 97166; 97530; 99199

== ENCOUNTER 2024-01-31 07:19 | Outpatient (RCR) | payer OTHER, SELFPAY | END 2024-03-04 10:33 | disposition home or self-care (01) | LOC: ANHHIOT 07:19 | PROVIDERS: PCP Internal Medicine | DX: S52.201D Unspecified fracture of shaft of right ulna, subsequent encounter for closed fracture with routine healing (principal); S42.294D Other nondisplaced fracture of upper end of right humerus, subsequent encounter for fracture with routine healing | CPT/HCPCS: 97110 ==

== ENCOUNTER 2024-03-26 10:55 | Outpatient (CLI) | payer MEDICARE, OTHER, SELFPAY ==
[2024-04-15 13:49] VITALS: BMI 40.7
--- NOTE | 2024-04-15 13:49 | WPDSLEEPSTUD ---
Sleep Study Date of Study: 03/26/24 Ordering Provider: Dawn Huber NP Interpreting Physician: Eve Srinivasan DO Sleep Study Type: Split Polysomnogram Height: 1.7 m Weight: 117.934 kg Body Mass Index: 40.7 Neck Circumference (inches): 18 [place]: 6 Reason for Sleep Study Atrial flutter requiring ablation and CHF Sleep History The patient is a 69-year-old male with hypertension, diabetes, congestive heart failure, atrial fibrillation s/p ablation and chronic narcotic use that had a sleep study ordered by his primary care for evaluation of sleep apnea. He was told that he had a sleeping issue while hospitalized at [facility]. The patient denies having trouble sleeping when he has a cold. The patient denies waking up gasping for air throughout the night. He occasionally has breathing problems at night observed by himself or others. He denies sweating excessively at night. He denies having heart palpitations or irregular heartbeats during the night. He occasionally falls asleep during the day but never while driving. He denies sleep paralysis, cataplexy and hypnagogic / hypnopompic hallucinations. He denies having trouble at school or work due to sleepiness. He denies feeling afraid of going to sleep. He denies having nightmares. He occasionally remembers his dreams. He denies having thoughts racing through his mind. He denies feeling sad, depressed or anxious. Oral he denies having muscular tension. He denies noticing parts of his body jerk. He denies kicking during the night. He denies having crawling and aching feelings in his legs and denies having leg pain during the night. He goes to bed at midnight on weekdays and at 9:00 p.m. on the weekends. He wakes up 2-3 times throughout the night to urinate and is able to fall back asleep within 30 minutes. He wakes up at 6:00 a.m. on weekdays and at 4:00 a.m. on the weekends. He typically gets 8 hours of sleep per night. He will stay in bed for 30 minutes after waking up in the morning. He currently lives alone. He is a former smoker. He consumes 2 alcoholic beverages per week. He denies recreational drug use. PMFSH Past Medical History Medical History CLINT (acute kidney injury) Arthritis Back pain Bilateral hip joint arthritis Diabetes Fractured rib Full thickness rotator cuff tear Hearing loss Heart murmur Heartburn High cholesterol Hyperlipidemia Hypertension Mitral valve insufficiency Pulmonary embolism 03/19/2018 Traumatic tear of right rotator cuff Type 2 diabetes mellitus Wears glasses Surgical History Surgical History History of appendectomy S/P rotator cuff repair Right- 2019 Status post left hip replacement Family History Family History Mother Diabetes mellitus Depression Father Hypertension Acute myocardial infarction, Onset Age: 55 Other Heart disease High cholesterol Social History Social History Social History: caffeine 1 cup Smoking packs per day: 2 Smoking cigarettes per day: 40.0 Years smoked: 10 Smoking pack-years: 20.00 Smoking status: Former smoker Tobacco type: cigarettes and cigars Smoking end date: 07/16/16 Alcohol intake: former Drinks per week: 2 Alcohol use details: Pt drinks occasionally. Substance use: former Substance use type: marijuana Last use: 1970 Lack of Transportation: No Lack of Food: Never True Current Housing: I Have Housing Concerned About Future Housing: No Difficulty Paying Gas/Electric Bills: No Difficulty Paying for Meds: No Currently Unemployed: No Education: High School Diploma/GED Difficulty w/ Childcare or Family Care: No Living arrangements: with family Occupation/Education: occupation Ad
== END 2024-03-27 05:47 | disposition home or self-care (01) ==
LOC: ANHCSM 10:55
PROVIDERS: PCP Internal Medicine; Visit Provider Nurse Practitioner
DX: G47.19 Other hypersomnia (principal); G47.33 Obstructive sleep apnea (adult) (pediatric)
CPT/HCPCS: 95811

== ENCOUNTER 2024-10-16 12:12 | Outpatient (CLI) | payer MEDICARE, SELFPAY ==
--- OUTSIDE RECORDS SUMMARY | 2024-10-16 12:40 | XMS_ITS | Clinical Summary ---
Author Organization [facility] Address [address] [place] [id number] Care Team Providers Care Information Systems Coordinator Name Role Phone Shaheed Rm DO Primary Care Provider [phone] Allergies No known active allergies Medications amLODIPine (NORVASC) 5 mg tablet Take 1 tablet (5 mg total) by mouth every evening 2 Active atorvastatin (LIPITOR) 20 mg tablet Take 1 tablet (20 mg total) by mouth nightly 3 Active metFORMIN (GLUCOPHAGE) 500 mg tabletIndicatio ns:type 2 diabetes mellitus Take 1 tablet (500 mg total) by mouth every morning 2 Active omeprazole (PriLOSEC) 20 mg capsule Take 1 capsule (20 mg total) by mouth every morning 3 Active venlafaxine XR (EFFEXOR-XR) 150 mg 24 hr capsule Take 1 capsule (150 mg total) by mouth nightly 2 Active morphine ER (MS CONTIN) 30 mg 12 hr tablet Take 1 tablet (30 mg total) by mouth 2 (two) times a day 3 Active Lumigan 0.01 % ophthalmic drops Administer 1 drop into both eyes nightly 3 Active calcium carbonate (Calcium 600) 1,500 mg (600 mg elemental) tabletIndicatio ns:Hypocalcemia Prevention,Oste oporosis Take 1 tablet (1,500 mg total) by mouth daily 30 tablet 3 3 Active ergocalciferol (VITAMIN D) 50,000 unit capsuleIndicati ons:Vitamin D Deficiency Take 1 capsule (50,000 Units total) by mouth once a week TAKE 1 CAPSULE ONCE A WEEK FOR 12 WEEKS, THEN FOLLOW UP WITH YOUR PCP. 12 capsule 3 Active senna-docusate (Senna-S) 8.6-50 mg Take 2 tablets by mouth 2 (two) times a day 80 tablet 1 3 Active lisinopriL (PRINIVIL,ZESTR IL) 30 mg tablet Take 1 tablet (30 mg total) by mouth daily 3 Active acetaminophen 500 mg capsule Take 2 capsules (1,000 mg total) by mouth every 6 (six) hours as needed for pain 60 capsule 4 Active oxyCODONE (ROXICODONE) 5 mg immediate release tabletIndicatio ns:Pain Take 1 tablet (5 mg total) by mouth every 4 (four) hours as needed for pain 30 tablet 4 Active naloxone (NARCAN) 4 mg/actuation spray,non-aeros olIndications:r isk mitigation for opioid overdose Administer 1 spray into affected nostril(s) as needed for opioid reversal Call 911. Administer a single spray in one nostril. Repeat every 3 minutes as needed if no or minimal response. 1 each 4 Active gabapentin (NEURONTIN) 300 mg capsule Take 1 capsule (300 mg total) by mouth every 8 (eight) hours 90 capsule 4 Active polyethylene glycol (MIRALAX) 17 gram packetIndicatio ns:constipation Take 1 packet (17 g total) by mouth daily 20 packet 4 Active methocarbamoL (ROBAXIN) 750 mg tablet Take 1 tablet (750 mg total) by mouth every 8 (eight) hours 90 tablet 4 Active oxyCODONE (ROXICODONE) 5 mg immediate release tabletIndicatio ns:Pain Take 1 tablet (5 mg total) by mouth every 6 (six) hours as needed for pain 20 tablet 4 Active HYDROcodone-audra taminophen (NORCO) 5-325 mg per tabletIndicatio ns:Pain Take 1 tablet by mouth every 6 (six) hours as needed for pain 28 tablet 4 Active amoxicillin 500 mg capsule TAKE 4 CAPSULES 1 HOUR BEFORE DENTAL APPOINTMENT. 4 Active aspirin 81 mg enteric coated tablet Take 1 tablet (81 mg total) by mouth daily 4 Active methylPREDNISol one (MEDROL DOSEPACK) 4 mg Dosepack FOLLOW PACKAGE DIRECTIONS 4 Active ibuprofen (ADVIL,MOTRIN) 800 mg tablet 4 Active brimonidine (ALPHAGAN) 0.15 % ophthalmic solution 4 Active Active Problems Problem Noted Date Diagnosed Date Humerus fracture 10/02/2023 Assessment & Plan (10/02/2023 12:22 PM CDT): - Orthopedic consult - NWB RUE, maintain splint/sling - non-operative management - PT/OT Multiple rib fractures 10/02/2023 Assessment & Plan (10/04/2023 2:59 PM CDT): #Right 2-7th rib fractures #Left 1st rib fracture with incomplete 3-7th rib fractures - pulmonary hygiene, IS, PT/OT - wean supplemental oxygen to maintain pulse oximetry >92% - pain control - chest xr (10/01): essentially unchanged extrapleural fluid over right hemithorax. No pleural effusion or pneumothorax - chest xr (10/03): essentially unchanged left basilar atelectasis. There is right peripheral opacity compatible with extrapleural fluid and multiple bilateral rib fractures Diabetes mellitus type II, controlled 10/02/2023 Assessment & Plan (10/02/2023 9:47 AM CDT): - DM diet - SSI Chronic pain syndrome 10/02/2023 Assessment & Plan (10/04/2023 2:53 PM CDT): - on home morphine 30mg TID - pain consult placed - d/c'd lido gtt on 10/01 - Tylenol 1g q6h - Robaxin 1000mg q8h - Gabapentin 600mg q8h - Oxycodone 10mg q4h PRN - Discontinued Dilaudid - 10/02: bupivacaine epidural placement Closed fracture of manubrium 10/02/2023 Assessment & Plan (10/02/2023 9:55 AM CDT): - pulmonary hygiene, IS, PT/OT - pulling 2L on IS - pain control Discharge planning issues 10/02/2023 Assessment & Plan (10/04/2023 2:58 PM CDT): - 10/01: pain management consult, wean supplemental oxygen, anticipate discharge by end of week - 10/03: Epidural in place, continued pain management Closed fracture of shaft of right ulna Assessment & Plan (10/02/2023 12:22 PM CDT): - Orthopedic consult - s/p ORIF on 09/30 by orthpaedic surgery - NWJuan Pablo RUE - PT/OT Fall, initial encounter 09/30/2023 CLINT (acute kidney injury) 02/14/2023 Osteoarthritis of left hip, unspecified osteoart hritis type 11/28/2022 Essential hypertension 08/17/2022 Assessment & Plan (10/02/2023 9:56 AM CDT): - home norvasc 5mg qDay Hyperlipidemia 08/17/2022 Primary osteoarthritis of left hip 08/17/2022 Overview (08/17/2022): Added automatically from request for surgery [id number] Immunizations Immunization Administration Dates Next Due Influenza, Unspecified 06/10/2012 Tdap 09/30/2023 Surgical History Surgery Date Site/Laterality Comments ROTATOR CUFF REPAIR Right APPENDECTOMY ANKLE SURGERY Left Medical History Medical History Date Comments DVT (deep venous thrombosis) ([facility]) 2018 PE Type 2 diabetes mellitus ([facility]) HL (hearing loss) Hypertension GERD (gastroesophageal reflux disease) Family History Medical History Relation Name Comments Anesthesia problems Neg Hx Malig Hypertension Neg Hx Malig Hyperthermia Neg Hx Pseudochol deficiency Neg Hx Social History Tobacco Use Types Packs/Day Years Used Date Smoking Tobacco: Former Cigarettes Q uit: 2019 Cigars Smokeless Tobacco: Never Tobacco Cessation:Counseling Given: Not Answered AUDIT-C Answer Date Recorded Q1: How often do you have a drink containing alc ohol? 2-4 times a month 11/06/2022 Q2: How many drinks containi ng alcohol do you have on a typical day when you are drinking? 1 or 2 11/06/2022 Q3: How often do you have si x or more drinks on one occasion? Never 11/06/2022 Personal Safety Answer Date Recorded Have you ever been in or are you currently in a harmful physical or emotional relationship or is someone making you feel afraid or unsafe? Denies 09/30/2023 Sex and Gender Information Value Date Recorded Sex Assigned at Not on file Legal Sex Male 3:30 AM [employer]UM[employer] Gender Identity Not on file Sexual Orientation Not on file Obstetrics History Last Filed Vital Signs Vital Sign Reading Time Taken Comments Blood Pressure 152/85 10/22/2023 11:01 AM CDT Pulse 93 10/22/2023 11:01 AM CDT Temperature 36.5 C (97.7 F) 10/22/2023 11:01 AM CDT Respiratory Rate 18 10/05/2023 11:1 5 AM CDT Oxygen Saturation 96% 10/22/2023 11: 01 AM CDT Inhaled Oxygen Concentration - - Weight 115.5 kg (254 lb 9.6 oz) 10/03/2023 6:20 AM CDT Height 170.2 cm (5' 7 ) 09/30/2023 2:48 PM CDT Body Mass Index 39.88 09/30/2023 2:48 PM CDT Plan of Treatment Health Maintenance Due Date Last Done Comments Albumin Creatinine Ratio, Urine 1953 Colon Cancer Screening-Colonoscopy 1953 Depression Screening 1953 Hepatitis C Screening 1953 Dilated Eye Exam 1953 Foot Exam 1953 Hepatitis B Screening 1971 Pneumococcal vaccine 65+ (1 of 2 - PCV) 01/18/1972 Zoster Vaccine (1 of 2) 2003 Well Visit 65+ 2018 Hemoglobin A1C 05/08/2023 11/06/2022 Covid-19 Vaccine (4 - 2023-2 5 season) 2024 06/22/2021, 11/11/2020, 10/21/2020 Influenza Vaccine (#1) 2024 06/10/2012 Lipid Panel 09/29/2024 09/30/2023, 08/0 08/2022, 12/22/2022, Additional history exists eGFR 10/02/2024 10/03/2023, 09/14, 10/02/2023, Additional history exists Fall Risk Assessment 10/04/2024 10/05/2023 DTaP/Tdap/Td Vaccine (2 - Td or Tdap) 09/29/2033 09/30/2023 Abdominal Aortic Aneurysm (A AA) Screen Completed 02/13/2023 Medical Devices Implanted Type Area Spice Room Worker Device Identifier Shelf Expiration Date Model / Serial / Lot [employer] Shell Acet Hip Grp E Por Quad Ti Prime Am 58mm [id number] - [id number] Implanted:Qty: 1 on 11/28/2022 by Varun De Paz MD at [facility] [employer] [id number] 08/23/2030 [id number] / / [id number] [employer] [id number] Procotyl Prime Od40 Mm Liner Acetabular Sterile Latex Free - [id number] Implanted:Qty: 1 on 11/28/2022 by Varun De Paz MD at [facility] [employer] 06/06/2030 [id number] / / [id number] [employer] Dynasty Lineage 6.5mm 30mm Acetabular Screw Bone Biofoam [id number] - [id number] Implanted:Qty: 1 on 11/28/2022 by Varun De Paz MD at [facility] [employer] 04/28/2030 [id number] / / [id number] Femoral Stem Implanted:Qty: 1 on 11/28/2022 by Varun De Paz MD at [facility] [employer] 02/10/2028 [id number] / / [id number] Description:425-97-015 1564. 49 [employer] Head Femoral Hip Biolox Delta 40mm Ceramic +4mm Offset 400-03-403 - [id number] Implanted:Qty: 1 on 11/28/2022 by Varun De Paz MD at [facility] [employer] 01/27/2026 [id number] / / [id number] Synthes 3.5mm 6mm 18mm 2.5mm Self Tap Small Hexagonal Socket Low Profile 204.818 - [id number] Implanted:Qty: 2 on 10/01/2023 by Baltazar Díaz MD at [facility] Right: Ulna Synthes I 204.818 / / Synthes 3.5mm 6mm 22mm 2.5mm Self Tap Small Hexagonal Socket Low Profile 204.822 - [id number] Implanted:Qty: 2 on 10/01/2023 by Baltazar Díaz MD at [facility] Right: Ulna Synthes I 204.822 / / Synthes 3.5mm 6mm 16mm 2.5mm Self Tap Small Hexagonal Socket Low Profile 204.816 - [id number] Implanted:Qty: 2 on 10/01/2023 by Baltazar Díaz MD at [facility] Right: Ulna Synthes I 204.816 / / Synthes 2.7mm 5mm 20mm 2.5mm Self Tap St[employer]rive Cortical T8 Screw Bone 202.880 - [id number] Implanted:Qty: 4 on 10/01/2023 by Baltazar Díaz MD at [facility] Right: Ulna Synthes I 202.880 / / Synthes Lcp Pro-Vicente 94mm 10 Hole Low Profile Cut To Length Plate Bone 247.374 - [id number] Implanted:Qty: 1 on 10/01/2023 by Baltazar Díaz MD at [facility] Right: Ulna Synthes I 247.374 / / Allosource Cubes Graft 15ml Bone Cancellous [id number] - [id number] Implanted:Qty: 1 on 10/01/2023 by Baltazar Díaz MD at [facility] Right: Ulna [employer] 03/11/2028 [id number] / [id number] / [id number] Synthes Lcp Combi [id number] 10 Hole Limit Contact Taper End Plate Bone 223.601 - [id number] Implanted:Qty: 1 on 10/01/2023 by Baltazar Díaz MD at [facility] Right: Ulna Synthes I 223.601 / / Synthes 3.5mm 6mm 20mm 2.5mm Self Tap Small Hexagonal Socket Low Profile 204.820 - [id number] Implanted:Qty: 1 on 10/01/2023 by Baltazar Díaz MD at [facility] Right: Ulna Synthes I 204.820 / / Explanted Type Area Spice Room Worker Device Identifier Shelf Expiration Date Model / Serial / Lot Synthes 2.4mm 16mm Self Tap [employer] Cortex T8 Screw Bone 201.766 - [id number] Explanted:Qty: 1 on 10/01/2023 by Baltazar Díaz MD at [facility] Right: Jaswinderna Synthes I 201.766 / / Procedures Procedure Name Priority Date/Time Associated Diagnosis Comments EGFR Timed 10/03/2023 10:19 PM CDT LIPID PANEL STAT 09/30/2023 3:21 PM CDT HEMOGLOBIN A1C Routine 11/06/2022 8:45 AM CDT Diabetes 1.5, managed as type 1 (HCC) from Last 3 Months or Most Recently Relevant to Health Maintenance Results * eGFR (10/03/2023 10:19 PM CDT) eGFR >90 >=60 mL/min/1. 73 m2 Comment: Interpretive Data Reference Interval Normal >/= 90 mL/min/1.73m2 Mildly decreased* 60 - 89 mL/min/1.73m2 Mildly to moderately decreased 45 - 59 mL/min/1.73m2 Moderately to severely decreased 30 - 44 mL/min/1.73m2 Severely decreased 15 - 29 mL/min/1.73m2 Kidney Failure < 15 mL/min/1.73m2 *Relative to young adult level Estimated glomerular filtration rate is determined by the 2020 CKD-EPI equation recommended by the National Kidney Foundation (A Unifying Approach to GFR Estimation: Recommendations of the NKF-ASK Task Force on Reassessing the Inclusion of Race in Diagnosing Kidney Disease, JASN 2020). The CKD-EPI equation should not be used for patients with unstable renal function and has not been validated in children and those over 70. Current interpretive data was last reviewed 2021. Blood 10/03/2023 10:1 9 PM CDT 10/03/2023 10:37 PM CDT us Chilo Santos DO LAB BLOOD ORDERABLES Final Result [facility] Department [place] [address] * Lipid panel (09/30/2023 3:21 PM CDT) Cholesterol 146 30 - 199 mg/dL Comment: Interpretive Data Ages < or = 19 years Acceptable: <170 mg/dL Borderline high: 170-199 mg/dL High: >or= 200 mg/dL Ages > or = 20 years Desirable: <200 mg/dL Borderline high: 200-239 mg/dL High: >or= 240 mg/dL Literature References: 1. Expert Panel on Integrated Guidelines for Cardiovascular Health and Risk Reduction in Children and Adolescents. Pediatrics 2011;128:S213 2. NCEP Expert Panel. Circulation 2004;110:227 Current Interpretive Data was last revised on 2018. Triglycerides 64 <=149 mg/dL [facility] Comment: Interpretive Data Ages < or = 9 years Acceptable: <75 mg/dL Borderline high: 75-99 mg/dL High: >or= 100 mg/dL Ages 10 to 20 years Acceptable: <90 mg/dL Borderline high: 90-129 mg/dL High: >or= 130 mg/dL Ages > or = 20 years Desirable: <150 mg/dL Borderline high: 150-199 mg/dL High: 200-499 mg/dL Very high: >or= 499 mg/dL Literature References: 1. Expert Panel on Integrated Guidelines for Cardiovascular Health and Risk Reduction in Children and Adolescents. Pediatrics 2011;128:S213 2. NCEP Expert Panel. Circulation 2004;110:227 Current Interpretive Data was last revised on 2018. HDL 56 >=40 mg/dL [facility] Comment: Interpretive Data Ages < or = 19 years Acceptable: >45 mg/dL Borderline low: 40-45 mg/dL Low: <40 mg/dL Ages > or = 20 years Desirable: >or= 60 mg/dL Low: <40 mg/dL Literature References: 1. Expert Panel on Integrated Guidelines for Cardiovascular Health and Risk Reduction in Children and Adolescents. Pediatrics 2011;128:S213 2. NCEP Expert Panel. Circulation 2004;110:227 Current Interpretive Data was last revised on 2018. LDL, calculated 77 <=129 mg/dL [facility] Comment: Interpretive Data Ages < or = 19 years Acceptable: <110 mg/dL Borderline high: 110-129 mg/dL High: >or= 130 mg/dL Ages > or = 20 years Optimal: <100 mg/dL Near optimal: 100-129 mg/dL Borderline high: 130-159 mg/dL High: >160 mg/dL Literature References: 1. Expert Panel on Integrated Guidelines for Cardiovascular Health and Risk Reduction in Children and Adolescents. Pediatrics 2011;128:S213 2. NCEP Expert Panel. Circulation 2004;110:227 Current Interpretive Data was last revised on 2018. Non-HDL Cholesterol 90 mg/dL [facility] Comment: Interpretive Data Ages < or = 19 years Acceptable: <120 mg/dL Borderline high: 120-144 mg/dL High: >145 mg/dL Ages > or = 20 years When triglycerides are >200 mg/dL, Non-HDL cholesterol is a secondary target of therapy with treatment goals that are 30 mg/dL greater than the LDL cholesterol target. Literature References: 1. Expert Panel on Integrated Guidelines for Cardiovascular Health and Risk Reduction in Children and Adolescents. Pediatrics 2011;128:S213 2. NCEP Expert Panel. Circulation 2004;110:227 Current Interpretive Data was last revised on 2018. Chol/HDL ratio 3 [facility] Blood 09/30/2023 3:21 PM CDT 09/30/2023 4:08 PM CDT Chilo Santos DO LAB BLOOD ORDERABLES Final Result [facility] [place] [address] * (ABNORMAL) Hemoglobin A1c (11/06/2022 8:45 AM CDT) Hgb A1C 6.7(H) 4.0 - 5.6 % [facility] Estimated Average Glucose 146 mg/dL [facility] Comment: The ADA recommends reporting an estimated Average Glucose (eAG) with all Hemoglobin A1c results using the equation derived from a study of 507 normal and diabetic adults. Minority populations were underrepresented and children were not included. (Diabetes Care 31:2350-8901, 2008). The eAG is not equivalent to a fasting glucose. Blood 11/06/2022 8:45 AM CDT 11/06/2022 9:12 AM CDT Varun De Paz MD LAB BLOOD ORDERABLES Final Re sult [facility] [id number] [facility]. Department [place] [address] from Last 3 Months or Most Recently Relevant to Health Maintenance Insurance MEDICARE [facility] MEDICARE [facility] MEDICARE [employer] COMPENS[employer] GENERIC Advance Directives For more information, please contact: [phone] * Full Code (Latest Code Status on File) Date Activated Date Inactivated Comments 09/30/2023 11:07 PM 10/05/2023 8:31 PM * Full Code Date Activated Date Inactivated Comments 11/28/2022 5:52 PM 11/29/2022 4:14 PM Care Teams Information Systems Coordinator Relationship Specialty Start Date End Date Shaheed Rm DO PCP - General Internal Medicine 10/01/23
--- OUTSIDE RECORDS SUMMARY | 2024-10-16 12:41 | XMS_ITS | Encounter Summary ---
Author Organization [facility] Address [facility] [place] [address] Care Team Providers Care Tail Board Worker Name Role Phone Shaheed Rm DO Primary Care Provider [phone] Kain Singh MD Unavailable [phone] Encounter Details Date Type Department Care Team (Late st Contact Info) Description 10/16/2024 Orders Only [facility] [address] [place], [place] [id number] Brennan Franklin MD [address] [facility] [address] [place] [address] Social History Tobacco Use Types Packs/Day Years Used Date Smoking Tobacco: Former Cigars Q uit: 2019 Smokeless Tobacco: Never Alcohol Use Standard Drinks/Week Comments Not Currently 0 (1 standard drink = 0.6 oz pur e alcohol) occ. B1300 Health Literacy Answer Date Recor ded How often do you need to hav e someone help you when you read instructions, pamphlets, or other written material from your doctor or pharmacy? Rarely 03/07/2024 [facility] Utilities Answer Date Recorded In the past 12 months has e electric, gas, oil, or water company threatened to shut off services in your home? No 03/07/2024 Humiliation, Afraid, Rape, and Kick questionnair e Answer Date Recorded Within the last year, have y ou been afraid of your partner or ex-partner? No 03/07/2024 Within the last year, have y ou been humiliated or emotionally abused in other ways by your partner or ex-partner? No Within the last year, have y ou been kicked, hit, slapped, or otherwise physically hurt by your partner or ex-partner? No 03/07/2024 Within the last year, have y ou been raped or forced to have any kind of sexual activity by your partner or ex-partner? No 03/07/2024 Social Connection and Isolat ion Panel [NHANES] Answer Date Recorded In a typical week, how many times do you talk on the phone with family, friends, or neighbors? More than three times a week 03/07/2024 How often do you get togethe r with friends or relatives? More than three times a week 03/07/2024 How often do you attend chur or jew services? Never 03/07/2024 Do you belong to any clubs o r organizations such as sabianist groups, unions, fraternal or athletic groups, or school groups? No 03/07/2024 How often do you attend meet ings of the clubs or organizations you belong to? Never 03/07/2024 Are you , , di vorced, , never , or living with a partner? 03/07/2024 AUDIT-C Answer Date Recorded Q1: How often do you have a drink containing alcohol? Never 03/07/2024 Q2: How many drinks containi ng alcohol do you have on a typical day when you are drinking? Patient does not drink Q3: How often do you have si x or more drinks on one occasion? Never 03/07/2024 Overall Financial Resource Strain (CARDIA) Answe r Date Recorded How hard is it for you to pa y for the very basics like food, housing, medical care, and heating? Not hard at all 03/07/2024 PHQ-2 Answer Date Recorded Patient Health Questionnaire-2 Score 0 03/03/2024 [facility] - Occupational Stress Questionnaire Answer Date Recorded Do you feel stress - tense, restless, nervous, or anxious, or unable to sleep at night because your mind is troubled all the time - these days? Not at all 03/07/2024 Exercise Vital Sign Answer Date Recorde d On average, how many days pe r week do you engage in moderate to strenuous exercise (like a brisk walk)? 0 days 03/07/2024 On average, how many minutes do you engage in exercise at this level? 0 min 03/07/2024 Hunger Vital Sign Answer Date Recorded Within the past 12 months, y ou worried that your food would run out before you got the money to buy more. Never true 03/07/20 24 Within the past 12 months, t he food you bought just didn't last and you didn't have money to get more. Never true 03/07/2024 PRAPARE - Transportation Answer Date Re corded In the past 12 months, has l ack of transportation kept you from medical appointments or from getting medications? No 02/14 In the past 12 months, has l ack of transportation kept you from meetings, work, or from getting things needed for daily living? No 03/07/2024 Housing Stability Vital Sign Answer Abdi e Recorded In the last 12 months, was t here a time when you were not able to pay the mortgage or rent on time? No 02/14/2023 In the last 12 months, how many places have you lived? 1 02/14/2023 In the last 12 months, was t here a time when you did not have a steady place to sleep or slept in a alf (including now)? No 02/14/2023 Housing Stability Vital Sign Answer Abdi e Recorded In the last 12 months, was t here a time when you were not able to pay the mortgage or rent on time? No 03/07/2024 In the past 12 months, how m any times have you moved where you were living? 0 03/07/2024 At any time in the past 12 m [facility], were you homeless or living in a alf (including now)? 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 Answer Date of Assessment Author Status No 03/07/2024 4:06 PM CDT Dawn Lazaro N urse Alumni Coordinator II Active * Do you have serious difficulty walking or climbing stairs? Answer Date of Assessment Author Status No 03/07/2024 4:09 PM CDT Dawn Lazaro N urse Alumni Coordinator II Active * Do you have difficulty dressing or bathing? Answer Date of Assessment Author Status No 03/07/2024 4:09 PM CDT Dawn Lazaro N ur[employer] Alumni Coordinator II Active * Because of a physical, mental, or emotional condition, do you have difficulty doing errands alone such as visiting a doctor's office or shopping? Answer Date of Assessment Author Status No 03/07/2024 4:09 PM CDT Dawn Lazaro N ur[employer] Alumni Coordinator II Active documented as of this encounter Mental Status * Because of a physical, mental, or emotional condition, do you have serious difficulty concentrating, remembering, or making decisions? Answer Entry Date Author Status No 03/07/2024 4:09 PM CDT Dawn Lazaro N urse Alumni Coordinator II Active documented in this encounter Plan of Treatment Pending Results Name Type Priority Associated Diagnoses Date /Time PTH - INTACT Lab Routine Abnormal results of kidney function studies Diabetes mellitus without complication ([facility]) 10/16/2024 12:34 PM CDT CBC, AUTO, NO DIFF Lab Routine Abnormal results of kidney function studies Diabetes mellitus without complication ([facility]) 10/16/2024 12:34 PM CDT RENAL FUNCTION PANEL Lab Routine Abnormal results of kidney function studies Diabetes mellitus without complication ([facility]) 10/16/2024 12:34 PM CDT Scheduled Orders Name Type Priority Associated Diagnoses Orde r Schedule PTH - INTACT Lab Routine Abnormal results of kidney function studies Diabetes mellitus without complication ([facility]) 1 Occurrences starting 10/16/2024 until 10/16/2025 CBC, AUTO, NO DIFF Lab Routine Abnormal results of kidney function studies Diabetes mellitus without complication ([facility]) 1 Occurrences starting 10/16/2024 until 10/16/2025 RENAL FUNCTION PANEL Lab Routine Abnormal results of kidney function studies Diabetes mellitus without complication ([facility]) 1 Occurrences starting 10/16/2024 until 10/16/2025 PROTEIN CREAT RATIO URINE Lab Routine Abnormal results of kidney function studies Diabetes mellitus without complication ([facility]) 1 Occurrences starting 10/16/2024 until 10/16/2025 documented as of this encounter Goals Goal Patient Goal Type Associated Problems Recent Progress Patient-Stated? 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 RN documented as of this encounter Visit Diagnoses Diagnosis Abnormal results of kidney function studies- Primary Nonspecific abnormal results of kidney function study Diabetes mellitus without complication ([facility]) Type II or unspecified type diabetes mellitus without mention of complication, not stated as uncontrolled documented in this encounter Care Teams Tail Board Worker Relationship Specialty Start Date End Date Shaheed Rm DO [address] [place] [address] PCP - General INTERNAL MEDICINE 01/29/18 Kain Singh MD [facility]. [address] [place] [address] [employer] CARDIOVASCULAR DISEASE 02/22/18 documented as of this encounter
--- OUTSIDE RECORDS SUMMARY | 2024-10-16 12:41 | XMS_ITS | Clinical Summary ---
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 12/06/19 13 Active omeprazole 20 MG capsule Take 1 capsule (20 mg total) by mouth daily. 12/05/19 13 Active atorvastatin 20 MG tablet Take 1 tablet (20 mg total) by mouth every evening. 03/11/20 18 Active morphine ER 30 MG 12 hr tablet Take 1 tablet (30 mg total) by mouth 2 (two) times daily. Takes 2 pills in AM, 1 pill in afternoon, 2 pills at night 0 03/11/20 18 Active morphine 15 MG tablet Take 1 tablet (15 mg total) by mouth 2 (two) times daily as needed. 0 03/05/20 19 Active metFORMIN (GLUCOPHAGE) 1000 MG tablet Take 1 tablet (1,000 mg total) by mouth 2 (two) times daily with meals. 10/04/19 24 Active brimonidine (ALPHAGAN) 0.15 % ophthalmic solution Place 1 drop into both eyes 2 (two) times a day. Active bimatoprost (LUMIGAN) 0.01 % Solution Place 1 drop into both eyes nightly at bedtime. Active magnesium oxide (MAG-OX) 400 MG tablet Take 1 tablet (400 mg total) by mouth daily. 30 tablet 03/09/20 24 Active potassium chloride CR (KLOR-CON M) 10 MEQ tablet Take 1 tablet (10 mEq total) by mouth daily. 90 tablet 03/09/20 24 Active lisinopril (PRINIVIL) 40 MG tablet Take 0.5 tablets (20 mg total) by mouth daily. KEEP YOUR APPOINTMENT ON 08/25/2024 10 tablet 08/20/19 25 Active metoprolol succinate ER (TOPROL-XL) 25 MG 24 hr tablet TAKE 1 TABLET (25 MG TOTAL) BY MOUTH DAILY. 30 tablet 09/10/19 25 Active furosemide (LASIX) 20 MG tablet TAKE 1 TABLET (20 MG TOTAL) BY MOUTH DAILY. CALL FOR AN APPOINTMENT 7 tablet 09/10/19 25 Active apixaban (ELIQUIS) 5 MG tablet Take 1 tablet (5 mg total) by mouth 2 (two) times daily. PLEASE CALL OFFICE TO SCHEDULE AN APPOINTMENT 60 tablet 10/07/19 25 Active apixaban (ELIQUIS) 5 MG tabletIndicatio ns:Atrial Fibrillation Take 1 tablet (5 mg total) by mouth 2 (two) times daily. Indications: Atrial Fibrillation 180 tablet 1 05/14/20 24 2024 Discontinued Active Problems Problem Noted Date Diagnosed Date Nonrheumatic aortic valve stenosis 03/31/2024 Assessment & Plan (03/31/2024 2:47 PM CDT): He was found to have at least moderate aortic valve stenosis on his echocardiogram. It appears that he was in atrial flutter at this time. I would like to repeat an echocardiogram to reassess his aortic stenosis. Aneurysm of ascending aorta without rupture 03/16 Assessment & Plan (03/31/2024 2:47 PM CDT): On CT and echo, he has an ascending aortic aneurysm. He may require surgery and I will review his CT scan with cardiothoracic surgery and his primary help desk consultant. Continue beta-kathy therapy. Typical atrial flutter ([facility]) 024 Assessment & Plan (03/31/2024 2:48 PM CDT): He recently was found to have typical atrial flutter and is status post ablation. Continue metoprolol and apixaban. CHF (congestive heart failure) ([facility]) 03/07/2024 Acute renal failure (ARF) 03/03/2024 Renal failure 03/03/2024 Chronic pain syndrome 10/02/2023 Overview (03/07/2024): Last Assessment & Plan: - on home morphine 30mg TID - pain consult placed - d/c'd lido gtt on 10/01 - Tylenol 1g q6h - Robaxin 1000mg q8h - Gabapentin 600mg q8h - Oxycodone 10mg q4h PRN - Discontinued Dilaudid - 10/02: bupivacaine epidural placement Closed fracture of manubrium 10/02/2023 Overview (03/07/2024): Last Assessment & Plan: - pulmonary hygiene, IS, PT/OT - pulling 2L on IS - pain control Diabetes mellitus type II, controlled ([facility] H HS/[facility]) 10/02/2023 Overview (03/07/2024): Last Assessment & Plan: - DM diet - SSI Humerus fracture 10/02/2023 Overview (03/07/2024): Last Assessment & Plan: - Orthopedic consult - NWB RUE, maintain splint/sling - non-operative management - PT/OT Multiple rib fractures 10/02/2023 Overview (03/07/2024): Last Assessment & Plan: #Right 2-7th rib fractures #Left 1st rib [...] extrapleural fluid and multiple bilateral rib fractures Closed fracture of shaft of right ulna Overview (03/07/2024): Last Assessment & Plan: - Orthopedic consult - s/p ORIF on 09/30 by orthpaedic surgery - NWB RUE - PT/OT Fall, initial encounter 09/30/2023 CLINT (acute kidney injury) 02/14/2023 Essential hypertension Assessment & Plan (03/31/2024 2:48 PM CDT): Continue antihypertensive therapy and good blood pressure control given ascending aortic aneurysm. Hyperlipidemia Assessment & Plan (03/31/2024 2:48 PM CDT): Continue atorvastatin. Resolved Problems Problem Noted Date Diagnosed Date Resolved Date Screening for colon cancer 08/13/2023 0 08/20/2023 Screening for colon cancer 08/13/2023 0 10/01/2023 Encounters Date Type Department Care Team Description 10/16/2024 12:30 PM CDT Hospital Encounter [facility] [address] [place] [address] Major Frankiln MD Arrived 10/16/2024 Orders Only [facility] [address] [place] [address] Major Franklin MD 10/16/2024 Travel 09/23/2024 Travel 07/29/2024 7:42 AM CONSULTING INTERN - 07/29/2024 11:59 PM CONSULTING INTERN Hospital Encounter [facility] [address] [place] [address] Major Franklin MD Discharge Disposition: Home or Self Care (Routine Discharge) 07/29/2024 Travel 07/20/2024 11:57 AM CONSULTING INTERN - 07/20/2024 11:59 PM CONSULTING INTERN Hospital Encounter [facility] [address] [place] [address] Major Franklin MD Discharge Disposition: Home or Self Care (Routine Discharge) 07/18/2024 10:51 AM CONSULTING INTERN - 07/18/2024 11:59 PM CONSULTING INTERN Hospital Encounter [facility] [address] [place] [address] Dawn Huber, CHAYO Discharge Disposition: Home or Self Care (Routine Discharge) 07/18/2024 10:47 AM CONSULTING INTERN - 07/18/2024 10:50 AM CONSULTING INTERN Hospital Encounter [facility] [address] [place] [address] Major Franklin MD Discharge Disposition: Home or Self Care (Routine Discharge) 07/18/2024 Orders Only [facility] [address] [place] [address] Dawn Huber APRN 07/18/2024 Orders Only [facility] [address] [place] [address] Major Franklin MD 07/18/2024 Travel from Last 3 Months Immunizations Name Administration Dates Next Due Influenza (Generic) 06/10/2012 Tdap (Generic) 09/30/2023 Family History Medical History Relation Comments [place] Brother Suicide Brother Hypertension Father [place] Father Diabetes Mother Relation Status Comments Brother Father (Age 55) Maternal Grandfather (Age 60) Maternal Grandmother (Age 85) Mother (Age 83) Paternal Grandfather (Age 93) Paternal Grandmother (Age 65) Social History Tobacco Use Types Packs/Day Years Used Date Smoking Tobacco: Former Cigars Q uit: 2019 Smokeless Tobacco: Never Tobacco Cessation:Counseling Given: Not Answered Alcohol Use Standard Drinks/Week Comments Not Currently 0 (1 standard drink = 0.6 oz pur e alcohol) occ. [id number] Health Literacy Answer Date Recor ded How often do you need to hav e someone help you when you read instructions, pamphlets, or other written material from your doctor or pharmacy? Rarely 03/07/2024 [facility] Utilities Answer Date Recorded In the [...] week 03/07/2024 How often do you attend [facility] or adventist services? Never 03/07/2024 Do you belong to any clubs o r organizations such as nondenominational groups, unions, fraternal or athletic groups, or [...] Recorded Patient Health Questionnaire-2 Score 0 03/03/2024 [facility] of Occupat ional Health - Occupational Stress [...] any time in the past 12 m [facility], were you homeless or living in a alf (including now)? 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 Not on file Not on file Not on file Last Filed Vital Signs Vital Sign Reading Time Taken Comments Blood Pressure 110/70 03/31/2024 1:40 PM CDT Pulse 75 03/31/2024 1:40 PM CDT Temperature 36.9 C (98.5 F) 03/09/2024 7:14 AM CDT Respiratory Rate 19 03/09/2024 7:14 AM CDT Oxygen Saturation 97% 03/31/2024 1:40 PM CDT Inhaled Oxygen Concentration - - Weight 115.9 kg (255 lb 9.6 oz) 03/31/2024 1:40 PM CDT Height 170.2 cm (5' 7 ) 03/31/2024 1:40 PM CDT Body Mass Index 40.03 03/31/2024 1:40 PM CDT Plan of Treatment Health Maintenance Due Date Last Done Comments Pneumococcal Vaccine: 65+ Years (1 of 2 - PCV) 1959 Diabetes: Retinopathy Eye Exam 1971 Hepatitis C 1971 Zoster Vaccines (1 of 2) 2003 RSV Immunization or 60+ Years (1 - Risk 60-74 years 1-dose series) 2013 Annual Medicare Wellness Visit 2018 COVID-19 Vaccine ( - season) 2024 11/11/2020, 10/21/2020 PHQ-2 (Physician [place]) 07/16/2024 03/03/2024 Hemoglobin A1C 10/16/2024 07/18/2024, 0911/2023, 01/29/2024, Additional history exists Kidney Health Evaluation 01/28/2025 01/29/2024 Lipid Panel 03/08/2025 03/08/2024, 0808/2022, 12/22/2022, Additional history exists Colorectal Cancer Screening Colonoscopy (10 Years) 09/25/2033 09/26/2023 DTaP, Tdap and Td Vaccines (2 - Td or Tdap) 09/29/2033 09/30/2023 AAA SCREENING Completed 03/07/2024, 09/13, 09/30/2023, Additional history exists Meningococcal B Vaccine Aged Out No l onger eligible based on patient's age to complete this topic Meningococcal Vaccine Aged Out No pari stew eligible based on patient's age to complete this topic RSV Immunizations Under 20 Months Aged Out No longer eligible based on patient's age to complete this topic Goals Goal Patient Goal Type Associated Problems Recent Progress Patient-Stated? 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 Procedure Name Priority Date/Time Associated Diagnosis Comments US RETROPERITONEAL COMP Routine 07/29/19 25 8:25 AM CONSULTING INTERN Abnormal results of kidney function studies UREA NITROGEN URINE 24 HR Routine 07/20/2024 9:30 AM CONSULTING INTERN Type 2 diabetes mellitus without complication (CMS/HCC HHS/HCC) Abnormal results of kidney function studies IMMUNOFIXATION ELECTROPHORESIS URINE 24 HR Routine 07/20/2024 9:30 AM CONSULTING INTERN Type 2 diabetes mellitus without complication (CMS/HCC HHS/HCC) Abnormal results of kidney function studies URINALYSIS, AUTO, COMPLETE Routine 07/18/2024 11:16 AM CONSULTING INTERN Type 2 diabetes mellitus without complication (CMS/HCC HHS/HCC) Abnormal results of kidney function studies HC CREATININE OTH SOURCE Routine 07/18/2024 11:16 AM CONSULTING INTERN Type 2 diabetes mellitus without complication (CMS/HCC HHS/HCC) Abnormal results of kidney function studies HEMOGLOBIN, GLYCOSYLATED Routine 07/18/2024 11:01 AM CONSULTING INTERN Hypomagnesemia Essential (primary) hypertension Type 2 diabetes mellitus without complication (CMS/HCC HHS/HCC) BASIC METABOLIC PANEL Routine 07/18/2024 11:01 AM CONSULTING INTERN Hypomagnesemia Essential (primary) hypertension Type 2 diabetes mellitus without complication (CMS/HCC HHS/HCC) MAGNESIUM Routine 07/18/2024 11:01 AM CONSULTING INTERN Hypomagnesemia Essential (primary) hypertension Type 2 diabetes mellitus without complication (CMS/HCC HHS/HCC) PTH - INTACT Routine 07/18/2024 11:00 AM CONSULTING INTERN Type 2 diabetes mellitus without complication (CMS/HCC HHS/HCC) Abnormal results of kidney function studies RENAL FUNCTION PANEL Routine 07/18/2024 11:00 AM CONSULTING INTERN Type 2 diabetes mellitus without complication (CMS/HCC HHS/HCC) Abnormal results of kidney function studies IMMUNOFIXATION Routine 07/18/2024 11:00 AM CONSULTING INTERN Type 2 diabetes mellitus without complication (CMS/HCC HHS/HCC) Abnormal results of kidney function studies COMPLEMENT, TOTAL (CH50) Routine 07/18/2024 11:00 AM CONSULTING INTERN Type 2 diabetes mellitus without complication (CMS/HCC HHS/HCC) Abnormal results of kidney function studies COMPLEMENT C4 Routine 07/18/2024 11:00 AM CONSULTING INTERN Type 2 diabetes mellitus without complication (CMS/HCC HHS/HCC) Abnormal results of kidney function studies ANTINUCLEAR ANTIBODY WI RFX Routine 07/18/2024 11:00 AM CONSULTING INTERN Type 2 diabetes mellitus without complication ([facility]/HCC HHS/HCC) Abnormal results of kidney function studies CK (CPK) Routine 07/18/2024 11:00 AM CONSULTING INTERN Type 2 diabetes mellitus without complication (CMS/HCC HHS/HCC) Abnormal results of kidney function studies SED RATE, ERYTHROCYTE (ESR) Routine 07/18/2024 11:00 AM CONSULTING INTERN Type 2 diabetes mellitus without complication (CMS/HCC HHS/HCC) Abnormal results of kidney function studies COMPLEMENT C3 Routine 07/18/2024 11:00 AM CONSULTING INTERN Type 2 diabetes mellitus without complication (CMS/HCC HHS/HCC) Abnormal results of kidney function studies CBC, AUTO, NO DIFF Routine 07/18/2024 11 :00 AM CONSULTING INTERN Type 2 diabetes mellitus without complication (CMS/HCC HHS/HCC) Abnormal results of kidney function studies LIPID PANEL Routine 03/08/2024 10:[address] ABD+PEL W CON STAT 03/07/2024 12:2 9 PM CDT from Last 3 Months or Most Recently Relevant to Health Maintenance Results * US RETROPERITONEAL COMP (07/29/2024 8:25 AM CONSULTING INTERN) Anatomical Region Laterality Modality Abdomen Ultrasound 07/29/2024 2:25 PM CONSULTING INTERN Impressions 07/29/2024 2:27 PM CONSULTING INTERN IMPRESSION: Possible right nonobstructing nephrolithiasis. Nonvisualization of the left ureteral jet. No left hydronephrosis. Ordered By: MAJOR FRANKLIN Interpreted By: Isaias Sanches MD, 07/29/2024 2:25 PM Narrative 07/29/2024 2:27 PM CONSULTING INTERN [facility] [address] [facility] [place] [address] Procedure(s): US RETROPERITONEAL COMP Date of service: 07/29/2024 7:59 AM Provided clinical information: 69 years, Male, abnormal results of kidney function studies Procedure and materials: Grayscale and color Doppler images the retroperitoneum are obtained. Comparison studies: CT scan of the abdomen and pelvis March 07, 2024. Findings: Right kidney measures 12.1 x 5.9 x 6 cm. Cortex measures 1.5 cm. No evidence of right hydronephrosis. Small punctate focus of hyperechogenicity is present in the interpolar right kidney. This may relate to a nonobstructive calculus measuring approximately 0.8 cm. Left kidney measures 11.1 x 6.2 x 5.8 cm. Cortex measures 1.9 cm. No left hydronephrosis. No focal left renal lesion. Right ureteral jet is identified in urinary bladder. Left is not able to be identified during the examination. Limited distention of the urinary bladder. Procedure Note Isaias Sanches MD - 07/29/2024 [facility] [address] [facility] [place] [id number] Procedure(s): US RETROPERITONEAL COMP Date of service: 07/29/2024 7:59 AM Provided clinical information: 69 years, Male, abnormal results of kidneyfunction studies Procedure and materials: Grayscale and color Doppler images theretroperitoneum are obtained. Comparison studies: CT scan of the abdomen and pelvis March 07, 2024. Findings: Right kidney measures 12.1 x 5.9 x 6 cm. Cortex measures 1.5 cm. Noevidence of right hydronephrosis. Small punctate focus ofhyperechogenicity is present in the interpolar right kidney. This mayrelate to a nonobstructive calculus measuring approximately 0.8 cm. Left kidney measures 11.1 x 6.2 x 5.8 cm. Cortex measures 1.9 cm. No lefthydronephrosis. No focal left renal lesion. Right ureteral jet is identified in urinary bladder. Left is not able gage identified during the examination. Limited distention of the urinarybladder. IMPRESSION: Possible right nonobstructing nephrolithiasis. Nonvisualization of the left ureteral jet. No left hydronephrosis. Ordered By: MAJOR FRANKLIN Interpreted By: Isaias Sanches MD, 07/29/2024 2:25 PM Major Franklin MD ULTRASOUND Final Result * (ABNORMAL) IMMUNOFIXATION ELECTROPHORESIS URINE 24 HR (07/20/2024 9:30 AM CONSULTING INTERN) VOLUME (U) 2,650 07/23/2024 3:[address] [facility] 24 HR VOL (MLS) 2,650 mL 12:05 AM CONSULTING INTERN [facility] MARYANN-PETRA MYLES CREATININE 24HR (U) 1.88 0.50 - 2.15 g/24 h 07/30/2024 12:05 AM CONSULTING INTERN [facility] MARYANN-PETRA LLY TOTAL PROTEIN 24HR (U) 186(H) <100 mg/24 h 07/30/2024 12:05 AM CONSULTING INTERN [facility] MARYANN-PETRA LLY PROTEIN/CREATININE RATIO 99 <100 mg/g creat 07/30/2024 12:05 AM CONSULTING INTERN [facility] MARYANN-PETRA LLY ALBUMIN ELECTROPHORESIS (U) 34 % 07/30/2024 12:05 AM CONSULTING INTERN [facility] MARYANN-PETRA MELENDEZY URINE ALPHA1 6 % 07/30/2024 12:05 AM CONSULTING INTERN [facility] JANUSZPETRA SHAR URINE ALPHA2 17 % 07/30/2024 12:05 AM CONSULTING INTERN [facility] JANUSZONEIDASANTIAGO MYLES BETA GLOBULIN (U) 31 % 025 12:05 AM CONSULTING INTERN [facility] LUDY MYLES GAMMA GLOBULIN (U) 12 % 2024 12:05 AM CONSULTING INTERN [facility] LUDY LLNestor ABNORMAL PROTEIN BAND 1 (U) REPORT 07/30/2024 12:05 AM CONSULTING INTERN [facility] MATTSANTIAGO LLNestor Comment: No M-Mikael detected. INTERPRETATION REPORT 07/30/2024 12:05 AM CONSULTING INTERN [facility] LUDY MYLES Comment: No abnormal peaks are detected on protein electrophoresis. Test Performed by Nhan Flynn, [employer] [facility], [address] [place] [address] Chilo Vazquez M.D., Ph.D., Director of Laboratories , CLIA [id number] IMMUNOFIXATION URINE REPORT 07/30/2024 12:05 AM CONSULTING INTERN [facility] LUDY MYLES Comment: Normal pattern. No monoclonal proteins detected. URINE SPECIMEN / Unknown 07/20/2024 9:30 AM CONSULTING INTERN Major Franklin MD URINE ORDERABLES Final Result [facility] [address] [address], [place] [phone] [facility] [address] [place] [address], [place] [phone] * UREA NITROGEN URINE 24 HR (07/20/2024 9:30 AM CONSULTING INTERN) UREA NITROGEN (U) 496 MG/DL 07/24/2024 1:09 PM [facility] Comment:REFERENCE RANGE NOT ESTABLISHED CALC 24HR UREA NITROGEN (U) 13.1 12.0 - 20.0 G/24HR 07/24/2024 1:09 PM CONSULTING INTERN [facility] VOLUME (U) 2,650 MLS 07/24/2024 12:35 PM CONSULTING INTERN [facility] URINE SPECIMEN / Unknown 07/20/2024 9:30 AM CONSULTING INTERN us Major Franklin MD URINE ORDERABLES Final Result Performing Organization Address [facility] de Phone Number [facility] [address] [place] [address], [place] [phone] * (ABNORMAL) PROTEIN CREAT RATIO URINE (07/18/2024 11:16 AM CONSULTING INTERN) PROTEIN URINE TOTAL RANDOM 17.3(H) <10 MG/DL 07/20/2024 8:40 AM [facility] CREATININE (U) 63.8 39 - 259 MG/DL 07/20/2024 8:40 AM [facility] PROTEIN/CREATIN INE RATIO 0.3 07/20/2024 8:40 AM [facility] URINE SPECIMEN / Unknown 07/18/2024 11:16 AM CONSULTING INTERN us Major Franklin MD URINE ORDERABLES Final Result Performing Organization Address [facility] de Phone Number [facility] [address] [place] [address], [place] [phone] * (ABNORMAL) URINALYSIS, AUTO, COMPLETE (07/18/2024 11:16 AM CONSULTING INTERN) COLOR (U) YELLOW 07/18/2024 11:36 AM CONSULTING INTERN [facility] TRANSPARENCY CLEAR 07/18/2024 11:36 AM [facility] SPECIFIC GRAVITY (U) 1.015 1.000 - 1.030 07/18/2024 11:36 AM [facility] U PH 6.0 5.0 - 9.0 07/18/2024 11:36 AM [facility] LEUKOCYTES (U) NEGATIVE NEGATIVE 07/18/2024 11:36 AM [facility] NITRITES NEGATIVE NEGATIVE 07/18/2024 11:36 AM [facility] PROTEIN RANDOM (U) TRACE(A) NEGATIVE 07/18/2024 11:36 AM [facility] GLUCOSE (U) TRACE(A) NEGATIVE 07/18/2024 11:36 AM [facility] KETONES MG/DL (U) NEGATIVE NEGATIVE 07/18/2024 11:36 AM [facility] BILIRUBIN (U) NEGATIVE NEGATIVE 07/18/2024 11:36 AM [facility] BLOOD (U) NEGATIVE NEGATIVE 07/18/2024 11:36 AM [facility] WBC/HPF NONE SEEN 0 - 5 /HPF 07/18/2024 11:36 AM [facility] RBC/HPF NONE SEEN 0 - 5 /HPF 07/18/2024 11:36 AM [facility] EPI/HPF FEW /HPF 07/18/2024 11:36 AM [facility] URINE SPECIMEN OBTAINED BY CLEAN CATCH PROCEDURE / Unknown 07/18/2024 11:16 AM [facility] Major Franklin MD URINE ORDERABLES Final Result [facility] [address] [place] [address], * (ABNORMAL) HEMOGLOBIN, GLYCOSYLATED (07/18/2024 11:01 AM CONSULTING INTERN) HGB A1C 9.6(H) <5.7 % 07/18/2024 11:39 AM [facility] Comment: INCREASED RISK OF DIABETES <5.7% NON-DIABETES 5.7-6.4% INCREASED RISK FOR FUTURE DIABETES > OR = 6.5 CONSISTENT WITH DIABETES STANDARDS OF MEDICAL CARE IN DIABETES-2010 DIABETES CARE, 33(SUPP 1): S1-S61,2010 ESTIMATED AVG GLUCOSE 229 mg/dL 07/18/2024 11:39 AM [facility] 07/18/2024 11:0 1 AM CONSULTING INTERN us Dawn Huber PROJECT DEVELOPMENT LEADER LABORATORY Final Result [facility] [address] [place] [address], * (ABNORMAL) BASIC METABOLIC PANEL (07/18/2024 11:01 AM CONSULTING INTERN) GLUCOSE 185(H) 70 - 99 MG/DL 07/18/2024 11:48 AM [facility] BUN 16 7 - 18 MG/DL 07/18/2024 11:48 AM [facility] CREATININE S/P/B 1.19 0.7 - 1.3 MG/DL 07/18/2024 11:48 AM [facility] SODIUM S/P/B 136 136 - 145 MMOL/L 07/18/2024 11:48 AM [facility] POTASSIUM S/P/B 4.3 3.5 - 5.1 MMOL/L 07/18/2024 11:48 AM [facility] CHLORIDE S/P/B 100 100 - 108 MMOL/L 07/18/2024 11:48 AM [facility] CO2 26.9 21 - 32 MMOL/L 07/18/2024 11:48 AM [facility] CALCIUM S/P/B 8.9 8.5 - 10.1 MG/DL 07/18/2024 11:48 AM CONSULTING INTERN [facility] ANION GAP 9.1 5 - 15 MMOL/L 07/18/2024 11:48 AM [facility] BUN CREATININE RATIO 13.4 6 - 26 07/18/2024 11:48 AM [facility] GFR ESTIMATE 65(L) >90 ML/MIN/1.7 3 M2 07/18/2024 11:48 AM [facility] Comment: NOTE: eGFR is not calculated for patients <18 years of age or gender unknown. This is an estimated GFR calculation using the new CKD EPI creatinine equation without race and so does not require a correction factor for race. This estimated GFR should not be used for calculating drug doses. 07/18/2024 11:0 1 AM CONSULTING INTERN Dawn Huber APRN LABORATORY Final Result Performing Organization Address City/[facility]/ZIP Co de Phone Number [facility] [address] [place] [address], [place] [phone] * (ABNORMAL) MAGNESIUM (07/18/2024 11:01 AM CONSULTING INTERN) MAGNESIUM 1.4(L) 1.8 - 2.4 MG/DL 07/18/2024 11:57 AM CONSULTING INTERN [facility] 07/18/2024 11:0 1 AM CONSULTING INTERN Dawn Huber APRN LABORATORY Final Result [facility] [address] [place] [address], [place] [phone] * ANTINUCLEAR ANTIBODY WI RFX (SUNIL) (07/18/2024 11:00 AM CONSULTING INTERN) SUNIL 0.2 07/23/2024 11:55 AM CONSULTING INTERN [facility] Comment: NEGATIVE: <0.7 RATIO SUNIL PROFILE AND TITER NOT PERFORMED THE SUNIL SCREEN TESTS FOR THE FOLLOWING ANTIBODIES BY EIA: SSA1 (RO), SSB1 (LA), LEES, SCL70, JO1, CENTROMERE, OVERHEAD DISTRIBUTION ENGINEER HISTONE MUST BE ORDERED SEPARATELY DNA (DS) ANTIBODY <0.6 IU/ML 025 11:55 AM CONSULTING INTERN [facility] Comment: NEGATIVE: <10 IU/mL EQUIVOCAL: 10 to 15 IU/mL POSITIVE: >15 IU/mL THIS QUANTITATIVE ASSAY IS CALIBRATED TO THE [employer]'S WO/80 STANDARD. THE LEVEL OF dsDNA AUTOANTIBODY GERERALLY CORRELATES WITH THE LEVEL OF DISEASE ACTIVITY IN SYSTEMIC LUPUS ERYTHMATOSUS 07/18/2024 11:0 0 AM CONSULTING INTERN us Major Franklin MD LABORATORY Final Result Performing Organization Address City/[facility]/ZIP Co de Phone Number [facility] [address] [place] [address], [place] [phone] * COMPLEMENT C4 (07/18/2024 11:00 AM CONSULTING INTERN) COMPLEMENT C4 27 15 - 53 mg/dL 07/22/2024 8:19 PM CONSULTING INTERN [employer] GABRIELA GREEN Comment: Test Performed by Nhan Flynn, [employer] Shahana [facility], [address] [place] [address] Chilo Vazquez M.D., Ph.D., Director of Laboratories , [facility] [id number] 07/18/2024 11:0 0 AM CONSULTING INTERN us Major Franklin MD LABORATORY Final Result Performing Organization Address [facility]/ZIP Co de Phone Number [employer] [address] [address], [place] [phone] * COMPLEMENT C3 (07/18/2024 11:00 AM CONSULTING INTERN) COMPLEMENT C3 160.0 90.0 - 180.0 MG/DL 07/21/2024 2:38 PM CONSULTING INTERN [facility] 07/18/2024 11:0 0 AM CONSULTING INTERN us Major Franklin MD LABORATORY Final Result Performing Organization Address City/[facility]/ZIP Co de Phone Number [facility] [address] [place] [address], [place] [phone] * PTH - INTACT (07/18/2024 11:00 AM CONSULTING INTERN) PTH INTACT 48.5 18.4 - 80.1 PG/ML 07/18/2024 2:40 PM CONSULTING INTERN [facility] 07/18/2024 11:0 0 AM CONSULTING INTERN us Major Franklin MD LABORATORY Final Result Performing Organization Address [facility] de Phone Number [facility] [address] [place] [address], [place] [phone] * (ABNORMAL) RENAL FUNCTION PANEL (07/18/2024 11:00 AM CONSULTING INTERN) GLUCOSE 185(H) 70 - 99 MG/DL 07/18/2024 11:46 AM [facility] BUN 16 7 - 18 MG/DL 07/18/2024 11:46 AM [facility] CREATININE S/P/B 1.19 0.7 - 1.3 MG/DL 07/18/2024 11:46 AM [facility] SODIUM S/P/B 136 136 - 145 MMOL/L 07/18/2024 11:46 AM [facility] POTASSIUM S/P/B 4.3 3.5 - 5.1 MMOL/L 07/18/2024 11:46 AM [facility] CHLORIDE S/P/B 100 100 - 108 MMOL/L 07/18/2024 11:46 AM [facility] CO2 26.9 21 - 32 MMOL/L 07/18/2024 11:46 AM [facility] CALCIUM S/P/B 8.9 8.5 - 10.1 MG/DL 07/18/2024 11:46 AM [facility] ALBUMIN S/P/B 3.5 3.4 - 5.0 G/DL 07/18/2024 11:46 AM [facility] PHOSPHORUS 3.7 2.5 - 4.9 MG/DL 07/18/2024 8:02 PM [facility] ANION GAP 9.1 5 - 15 MMOL/L 07/18/2024 11:46 AM [facility] BUN CREATININE RATIO 13.4 6 - 26 07/18/2024 11:46 AM [facility] GFR ESTIMATE 65(L) >90 ML/MIN/1.7 3 M2 07/18/2024 11:46 AM [facility] Comment: NOTE: eGFR is not calculated for patients <18 years of age. This is an estimated GFR calculation using the new CKD EPI creatinine equation without race and so does not require a correction factor for race. This estimated GFR should not be used for calculating drug doses. 07/18/2024 11:0 0 AM [facility] Major Franklin MD LABORATORY Final Result [facility] [address] [place] [address], * (ABNORMAL) SED RATE, ERYTHROCYTE (ESR) (07/18/2024 11:00 AM CONSULTING INTERN) ESR 27(H) 0 - 20 MM/HR 07/18/2024 11:27 AM [facility] 07/18/2024 11:0 0 AM CONSULTING INTERN us Major Franklin MD LABORATORY Final Result Performing Organization Address [facility]/ZIP Co de Phone Number [facility] [address] [place] [address], [place] [phone] * (ABNORMAL) IMMUNOFIXATION (07/18/2024 11:00 AM CONSULTING INTERN) IMMUNOFIXATION SERUM REPORT(A) 07/20/2024 8:47 PM CONSULTING INTERN [employer] LUDY LLY Comment: IgA lambda monoclonal band present. Test Performed by [employer], [address] [place] [address] Chilo Vazquez M.D., Ph.D., Director of Laboratories , CLIA [id number] 07/18/2024 11:0 0 AM CONSULTING INTERN us Major Franklin MD LABORATORY Final Result Performing Organization Address [facility]/ZIP Co de Phone Number [facility] [address] [place] [address], [place] [phone] * (ABNORMAL) COMPLEMENT, TOTAL (CH50) (07/18/2024 11:00 AM CONSULTING INTERN) Pathologist [facility] COMPLEMENT CH50 66(H) 31 - 60 U/mL 07/20/2024 12:43 PM CONSULTING INTERN [employer] GABRIELA LY Comment: Test Performed by [employer], [address] [place], [place] Chilo Vazquez M.D., Ph.D., Director of Laboratories , CLIA [id number] 07/18/2024 11:0 0 AM CONSULTING INTERN us Major Franklin MD LABORATORY Final Result [facility] [address] [place] [address], [place] [phone] * (ABNORMAL) CBC, AUTO, NO DIFF (07/18/2024 11:00 AM CONSULTING INTERN) WBC 5.54 4.4 - 11.0 x10'3/uL 07/18/2024 11:25 AM [facility] RBC 4.36(L) 4.50 - 5.90 x10'6/uL 07/18/2024 11:25 AM [facility] HGB 13.1(L) 14.0 - 17.5 G/DL 07/18/2024 11:25 AM [facility] HCT 39.3(L) 41.5 - 50.4 % 07/18/2024 11:25 AM [facility] MCV 90.1 80.0 - 96.0 FL 07/18/2024 11:25 AM [facility] MCH 30.0 26.5 - 31.4 PG 07/18/2024 11:25 AM [facility] MCHC 33.3 31.9 - 34.8 G/DL 07/18/2024 11:25 AM [facility] RDW 12.8 12.3 - 14.3 % 07/18/2024 11:25 AM [facility] PLT 194 151 - 353 x10'3/uL 07/18/2024 11:25 AM [facility] MPV 9.8 9.7 - 11.9 FL 07/18/2024 11:25 AM [facility] 07/18/2024 11:0 0 AM CONSULTING INTERN us Major Franklin MD LABORATORY Final Result [facility] [address] [place] [address], * CK (CPK) (07/18/2024 11:00 AM CONSULTING INTERN) CPK 222 39 - 308 U/L 07/18/2024 11:46 AM CONSULTING INTERN [facility] 07/18/2024 11:0 0 AM CONSULTING INTERN us Major Franklin MD LABORATORY Final Result Performing Organization Address [facility] Co de Phone Number [facility] [address] [place] [address], [place] [phone] * LIPID PANEL (03/08/2024 10:18 AM CDT) CHOLESTEROL 119 <200.0 MG/DL 03/08/2024 10:56 AM T [facility] TRIGLYCERIDES 87 <150 MG/DL 03/08/2024 10:56 AM T [facility] HDL 53 >40.0 MG/DL 03/08/2024 10:56 AM T [facility] LDL (CALCULATED) 49 <100 MG/DL 03/08/20 10:56 AM T [facility] NON HDL CHOLESTEROL 66 <130 MG/DL 03/08 10:56 AM T [facility] CHOL/HDL RATIO 2.2 0.0 - 4.5 03/08/2024 10:56 AM T [facility] VLDL CALCULATION 17 5 - 55 MG/DL 03/08/2024 10:56 AM T [facility] LIPID INTERPRETATION 03/08/2024 10:56 AM T [facility] Comment: NIH CONCENSUS REPORT RECOMMENDATIONS: ADULT CHILD LOW RISK: CHOLESTEROL <200 <170 TRIGLYCERIDE <150 --- HDL >=60 --- LDL <100 <110 BORDERLINE: CHOLESTEROL 200-239 170-199 TRIGLYCERIDE 150-199 --- HDL 40-59 --- LDL 100-159 110-129 HIGH RISK: CHOLESTEROL >=240 >=200 TRIGLYCERIDE >=200 --- HDL <40 --- LDL >=160 >=130 03/08/2024 10:1 8 AM CDT Rabia Belle NP LABORATORY Final Result [facility] [address] [place] [address], * CT ABD+PEL W CON (03/07/2024 12:29 PM CDT) Anatomical Region Laterality Modality Abdomen Computed Tomogra phy 03/07/2024 12:4 7 PM CDT Impressions 03/07/2024 2:14 PM CDT =====IMPRESSION:===== 1. . Mild periureteral fatty infiltration and mild mucosal thickening in the mid to distal bilateral ureters. No obstructing calculus. May be due to ascending urinary tract infection. No urinary bladder calculi.. 2. No evidence of intra-abdominal mass or pathologic lymphadenopathy. No bowel obstruction. Ordered By: CLEMENCIA LEES Interpreted By: Noman Gonzalez, 03/07/2024 12:47 PM Narrative 03/07/2024 2:14 PM CDT EXAMINATION: CT ABDOMEN AND PELVIS WITH CONTRAST EXAM DATE/TIME: 03/07/2024 12:08 PM REASON FOR EXAM: Epigastric pain abdominal pain, distention . Appendectomy COMPARISON: 02/13/2023 TECHNIQUE: Axial imaging of the abdomen and pelvis was obtained in corticomedullary and excretory phase after 75 mL of Isovue-370 was injected. A dose lowering technique was used for this procedure, which may include, but is not limited to, dose reduction technique, automated exposure control, iterative reconstruction, ALARA (As Low As Reasonably Achievable), or Image Gently techniques. Oral contrast was not administered. FINDINGS: Abdomen: Adrenal glands: Unremarkable. Kidneys: No suspicious lesion or hydronephrosis.No renal calculi. Minor periureteral fatty infiltration and mild mucosal thickening of the mid to distal bilateral ureters. May be due to ascending urinary tract infection Spleen: Unremarkable. Stomach and duodenum: Unremarkable. Gallbladder: Partially filled and grossly unremarkable. Pancreas grossly unremarkable. Hepatic parenchyma are within normal limits with no evidence of intrahepatic biliary dilatation or mass. Portal vein patent. No mesenteric lymphadenopathy or evidence of small bowel obstruction. No free air. No evidence of retroperitoneal lymphadenopathy. Minimal amount of nonspecific fluid in the right paracolic gutter. No acute pathological Dary the ascending colon. No evidence of an abdominal aortic aneurysm. Scattered fecal material and gas throughout the colon without evidence of mass or dilatation. Appendectomy Pelvis: Urinary bladder and rectum are unremarkable. Evaluation of the pelvis is slightly limited due to artifact from left hip prosthesis. On bone windows, no evidence of suspicious skeletal lesion or acute compression fracture deformity. Moderate degenerative change in lumbar spine with pars defect at L5. Lower thorax as detailed on same-day CT chest Procedure Note Efrain Gonzalez MD - 03/07/2024 EXAMINATION: CT ABDOMEN AND PELVIS WITH CONTRAST EXAM DATE/TIME: 03/07/2024 12:08 PM REASON FOR EXAM: Epigastric pain abdominal pain, distention .Appendectomy COMPARISON: 02/13/2023 TECHNIQUE: Axial imaging of the abdomen and pelvis was obtained incorticomedullary and excretory phase after 75 mL of Isovue-370 wasinjected. A dose lowering technique was used for this procedure, whichmay include, but is not limited to, dose reduction technique, automatedexposure control, iterative reconstruction, ALARA (As Low As ReasonablyAchievable), or Image Gently techniques. Oral contrast was not administered. FINDINGS: Abdomen: Adrenal glands: Unremarkable. Kidneys: No suspicious lesion or hydronephrosis.No renal calculi. Minorperiureteral fatty infiltration and mild mucosal thickening of the mid todistal bilateral ureters. May be due to ascending urinary tractinfection Spleen: Unremarkable. Stomach and duodenum: Unremarkable. Gallbladder: Partially filled and grossly unremarkable. Pancreas grossly unremarkable. Hepatic parenchyma are within normal limits with no evidence ofintrahepatic biliary dilatation or mass. Portal vein patent. No mesenteric lymphadenopathy or evidence of small bowel obstruction. Nofree air. No evidence of retroperitoneal lymphadenopathy. Minimal amount ofnonspecific fluid in the right paracolic gutter. No acute pathologicalJune the ascending colon. No evidence of an abdominal aortic aneurysm. Scattered fecal material and gas throughout the colon without evidence ofmass or dilatation. Appendectomy Pelvis: Urinary bladder and rectum are unremarkable. Evaluation of thepelvis is slightly limited due to artifact from left hip prosthesis. On bone windows, no evidence of suspicious skeletal lesion or acutecompression fracture deformity. Moderate degenerative change in lumbarspine with pars defect at L5. Lower thorax as detailed on same-day CT chest =====IMPRESSION:===== 1. . Mild periureteral fatty infiltration and mild mucosal thickening inthe mid to distal bilateral ureters. No obstructing calculus. May be dueto ascending urinary tract infection. No urinary bladder calculi.. 2. No evidence of intra-abdominal mass or pathologic lymphadenopathy. Nobowel obstruction. Ordered By: CLEMENCIA LEES Interpreted By: Noman Gonzalez, 03/07/2024 12:47 PM Clemencia Lees MD CT Final Result from Last 3 Months or Most Recently Relevant to Health Maintenance Insurance MEDICARE MEDICARE [facility] Advance Directives Documents on File Type Date Recorded Patient [employer] Worker Expl anation Advance Directives and Livin g Will 02/19/2023 4:20 PM * Full Code (Latest Code Status on File) Date Activated Date Inactivated Comments 03/07/2024 3:39 PM 03/09/2024 3:50 PM * Full Code Date Activated Date Inactivated Comments 03/03/2024 12:25 AM 03/05/2024 1:30 PM * Full Code Date Activated Date Inactivated Comments 02/14/2023 2:43 AM 02/17/2023 1:14 PM Care Teams Box Truck Washer Relationship Specialty Start Date End Date Shaheed Rm DO [address] [place] [address] PCP - General INTERNAL MEDICINE 01/29/18 Kain Singh MD [facility] [address] [place] [address] [place] Manager Post CARDIOVASCULAR DISEASE 02/22/18
--- OUTSIDE RECORDS SUMMARY | 2024-10-16 12:41 | XMS_ITS | Referral Summary ---
Author Organization [facility] [place] [address] Care Team Providers Care Can Cleaner Name Role Phone Shaheed Rm DO Primary Care Provider [phone] Allergies No known active allergies Medications amLODIPine [...] ORIF on 09/30 by orthpaedic surgery - DANYA RUE - PT/OT Fall, initial encounter 09/30/2023 CLINT (acute kidney injury) 02/14/2023 Osteoarthritis of left hip, unspecified osteoart hritis type 11/28/2022 Essential hypertension 08/17/2022 Assessment & Plan (10/02/2023 9:56 AM CDT): - home norvasc 5mg qDay Hyperlipidemia 08/17/2022 Primary osteoarthritis of left hip 08/17/2022 Overview (08/17/2022): Added automatically from request for surgery [id number] Immunizations Immunization Administration Dates Next Due Influenza, Unspecified 06/10/2012 Tdap 09/30/2023 Social History Tobacco Use Types Packs/Day Years [...] on file 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 Gender Identity Not on file Sexual Orientation Not on file Last Filed Vital Signs [...] 09/30/2023 2:48 PM CDT Plan of Treatment Not on file Medical Devices Implanted Type Area Specialty Finishing Utility Person Device Identifier Shelf Expiration Date Model / Serial / Lot [employer] Shell Acet Hip Grp E Por Quad Ti Prime Am 58mm [id number] - [id number] Implanted:Qty: 1 on 11/28/2022 by Varun De Paz MD at [facility] [employer] [id number] 08/23/2030 [id number] / / [id number] [employer] [id number] Procotyl Prime Od40 Mm Liner Acetabular Sterile Latex Free - [id number] Implanted:Qty: 1 on 11/28/2022 by Varun De Paz MD at [facility] [employer] 06/06/2030 [id number] / / [id number] [employer] Dynasty Lineage 6.5mm 30mm Acetabular Screw Bone Biofoam [id number] - [id number] Implanted:Qty: 1 on 11/28/2022 by Varun De Paz MD at [facility] [employer] 04/28/2030 [id number] / / [id number] Femoral Stem Implanted:Qty: 1 on 11/28/2022 by Varun De Paz MD at [facility] [employer] 02/10/2028 [id number] / / [id number] Description:[id number] 1564. 49 [employer] Head Femoral Hip Biolox Delta 40mm Ceramic +4mm Offset 400-03-403 - [id number] Implanted:Qty: 1 on 11/28/2022 by Varun De Paz MD at [facility] [employer] 01/27/2026 [id number] / / [id number] Synthes 3.5mm 6mm 18mm 2.5mm Self Tap Small Hexagonal Socket Low Profile 204.818 - [id number] Implanted:Qty: 2 on 10/01/2023 by Baltazar Díaz MD at [facility] Right: Ulna Synthes I 204.818 / / Synthes 3.5mm 6mm 22mm 2.5mm Self Tap Small Hexagonal Socket Low Profile 204.822 - [id number] Implanted:Qty: 2 on 10/01/2023 by Baltazar Díaz MD at [facility] Right: [employer] I 204.822 / / Synthes 3.5mm 6mm 16mm 2.5mm Self Tap Small Hexagonal Socket Low Profile 204.816 - [id number] Implanted:Qty: 2 on 10/01/2023 by Baltazar Díaz MD at [facility] Right: [employer]na [employer] I 204.816 / / Synthes 2.7mm 5mm 20mm 2.5mm Self Tap St[employer]rive Cortical T8 Screw Bone 202.880 - [id number] Implanted:Qty: 4 on 10/01/2023 by Baltazar Díaz MD at [facility] Right: Ulna Synthes I 202.880 / / Synthes Lcp Pro-Vicente 94mm 10 Hole Low Profile Cut To Length Plate Bone 247.374 - [id number] Implanted:Qty: 1 on 10/01/2023 by Baltazar Díaz MD at [facility] Right: Ulna Synthes I 247.374 / / Allosource Cubes Graft 15ml Bone Cancellous [id number] - [id number] - [id number] Implanted:Qty: 1 on 10/01/2023 by Baltazar Díaz MD at [facility] Right: [employer] 03/11/2028 [id number] / [id number] / [id number] Synthes Lcp Combi 402t07n2.4mm 10 Hole Limit Contact Taper End Plate Bone 223.601 - [id number] Implanted:Qty: 1 on 10/01/2023 by Baltazar Díaz MD at [facility] Right: Ulna S[employer] I 223.601 / / Synthes 3.5mm 6mm 20mm 2.5mm Self Tap Small Hexagonal Socket Low Profile 204.820 - [id number] Implanted:Qty: 1 on 10/01/2023 by Baltazar Díaz MD at [facility] Right: [employer]na [employer] I 204.820 / / Explanted Type Area Specialty Finishing Utility Person Device Identifier Shelf Expiration Date Model / Serial / Lot Synthes 2.4mm 16mm Self Tap [employer] Cortex T8 Screw Bone 201.766 - [id number] Explanted:Qty: 1 on 10/01/2023 by Baltazar Díaz MD at [facility] Right: Ulna Synthes I 201.766 / / Procedures Procedure [...] PM CDT 10/03/2023 10:37 PM CDT us Chilonba Santos DO LAB BLOOD ORDERABLES Final Result [facility] Department [place] [address] * Lipid panel (09/30/2023 3:21 PM CDT) [...] 2018. Triglycerides 64 <=149 mg/dL [facility] Comment: Interpretive Data Ages < or [...] revised on 2018. HDL 56 >=40 mg/dL [facility] Comment: Interpretive Data Ages < or [...] on 2018. LDL, calculated 77 <=129 mg/dL [facility] Comment: Interpretive Data Ages < or [...] revised on 2018. Non-HDL Cholesterol 90 mg/dL [facility] Comment: Interpretive Data Ages < or [...] last revised on 2018. Chol/HDL ratio 3 [facility] Blood 09/30/2023 3:21 PM CDT 09/30/2023 4:08 PM CDT Chilo Santos DO LAB BLOOD ORDERABLES Final Result [facility] Department [place] [address] * (ABNORMAL) Hemoglobin A1c (11/06/2022 8:45 AM [...] and children were not included. (Diabetes Care [id number]:[id number], 2008). The eAG is not equivalent to a fasting glucose. Blood 11/06/2022 8:45 AM CDT 11/06/2022 9:12 AM CDT Varun De Paz MD LAB BLOOD ORDERABLES Final Re sult Performing Organization Address [facility] de Phone Number [facility] [address] [facility] Department [place] [address] from Last 3 Months or Most Recently Relevant to Health Maintenance Insurance MEDICARE [facility] MEDICARE [facility] [place] [address] MEDICARE [facility] EMPLOYERS MUTUAL WORK[employer] COMPENSATION GENERIC Advance Directives For more information, please contact: [phone] * Full Code (Latest Code Status on File) Date Activated Date Inactivated Comments 09/30/2023 11:07 PM 10/05/2023 8:31 PM * Full Code Date Activated Date Inactivated Comments 11/28/2022 5:52 PM 11/29/2022 4:14 PM Care Teams Can Cleaner Relationship Specialty Start Date End Date Shaheed Rm DO PCP - General Internal Medicine 10/01/23
--- OUTSIDE RECORDS SUMMARY | 2024-10-16 12:41 | XMS_ITS | Continuity of Care Document ---
Author Organization [facility] Address [address] [place] [address] [address] [place] [address] Phone Care Team Providers Care Glass Cutter Hand Name Role Phone Mio Calle MD Unavailable Unavailable Allergies, Adverse Reactions, Alerts Substance Reaction Status Criticality No Known allergies Medications Medication Instructions Dosage Effective Dates (start - stop) Status Comments RIOMET (unknown strength) Not Available - Active CANTIL (unknown strength) Not Available - Active OXYCODONE HCL (unknown strength) Not Available - Active ATORVASTATIN CALCIUM (unknown strength) Not Available - Active ASPIR 81 (unknown strength) Not Available - Active Procedures Procedure Date OFFICE/OUTPATIENT VISIT [facility] OFFICE/OUTPATIENT VISIT [facility] Advance Directives Directive Yes / No Effective Date File Name Resuscitation Not Answered N/A N/A Life Support Not Answered N/A N/A Intubation Not Answered N/A N/A Antibiotics Not Answered N/A N/A IV Fluid Support Not Answered N/A N/A Tube Feed Not Answered N/A N/A Other Directive N/A N/A WARNING:The information contained in this section is historical and is provided for information only and does not constitute a legal document or any assurance that the information is still accurate. Please verify the information with the frederick of the legal document before using it for clinical purposes. Encounters Encounter Description Practice Location Reason(s) For Visit Diagnoses Date Provider Providers Copied on Encounter OFFICE/OUTPAT IENT VISIT [facility], [address] [place], [place] [address], [place], [address], [place] tel:[phone] [facility] Tear of medial cartilage or meniscus of knee, currentOsteo arthrosis, unspecified whether generalized or localized, involving lower leg 7 4 Luc Lieberman. [address] [place], [place], [id number] . tel:[phone] OFFICE/OUTPAT IENT VISIT EST [facility], [address], [place], [address], tel:[phone] [facility] Osteoarthros is, unspecified whether generalized or localized, involving lower legTear of medial cartilage or meniscus of knee, current 3 Luc Lieberman. [address] [place], [place], [id number] . tel: [phone] Family History Family Member Type Diagnosis Age At Onset No Information Payers Payer name Insurance type Covered constitution party ID Authoriza tion(s) No Information Social History Type Description Quantity Date Captured Comments Alcohol Use Details Unknown Caffeine Use Details Unknown Tobacco Use Status No Information Smoking Status Current every day smoker 2013 Sex Male Chief Complaint And Reason For Visit No Information Reason For Referral Reason For Referral No Information Plan Of Treatment Date Type Action Status Referral Ordered: RADSHIRLEY POLANCO COMPL 4/MORE VIEWS LT ordered History Of Present Illness Encounter Date Complaint History Of Prese nt Illness No Information Functional Status Date Functional Assessmen t No Information Instructions Date Instruction Additional Infor mation No Information Assessments Type Assessment Date No Information Patient Care Teams Name Effective Dates (start - stop) Status Members No Information
--- OUTSIDE RECORDS SUMMARY | 2024-10-16 12:41 | XMS_ITS | Encounter Summary ---
Author Organization [facility] Address [facility] [place] [address] Care Team Providers Care Field Operations Technician Name Role Phone Shaheed Rm DO Primary Care Provider [phone] Kain Singh MD Unavailable [phone] Encounter Details Date Type Department Care Team (Latest Contact Info) Description 10/16/2024 Travel Social History Tobacco Use Types Packs/Day Years [...] from your doctor or pharmacy? Rarely 03/07/2024 [facility] Utilities Answer Date Recorded In the past 12 months has [facility] [email or web address], gas, oil, or water [email or web address] threatened to shut off services in your [...] How often do you attend chur or faith services? Never 03/07/2024 Do you belong to any clubs o r organizations such as christian groups, unions, fraternal or athletic groups, or [...] Recorded Patient Health Questionnaire-2 Score 0 03/03/2024 [facility] of Occupat ional Health - Occupational Stress [...] place to sleep or slept in a half-way (including now)? No 02/14/2023 Housing Stability Vital [...] were you homeless or living in a half-way (including now)? No 03/07/2024 Sex and Gender [...] Author Status Yes 03/07/2024 4:06 PM CDT Dawn Lazaro N urse Advice Line Rn II Active * Are you blind or do you have serious difficulty seeing, even when wearing glasses? Answer Date of Assessment Author Status No 03/07/2024 4:06 PM CDT Dawn Lazaro N urse Advice Line Rn II Active * Do you have serious difficulty walking or climbing stairs? Answer Date of Assessment Author Status No 03/07/2024 4:09 PM CDT Dawn Lazaro Marva, N urse Advice Line Rn II Active * Do you have difficulty dressing or bathing? Answer Date of Assessment Author Status No 03/07/2024 4:09 PM CDT Dawn Lazaro Marva, N urse Advice Line Rn II Active * Because of a physical, mental, or emotional condition, do you have difficulty doing errands alone such as visiting a doctor's office or shopping? Answer Date of Assessment Author Status No 03/07/2024 4:09 PM CDT Dawn Lazaro Marva, N urse Advice Line Rn II Active documented as of this encounter Mental Status * Because of a physical, mental, or emotional condition, do you have serious difficulty concentrating, remembering, or making decisions? Answer Entry Date Author Status No 03/07/2024 4:09 PM CDT Dawn Lazaro Marva, N urse Advice Line Rn II Active documented in this encounter Plan of Treatment Not on file documented as of this encounter Goals Goal Patient Goal Type Associated Problems Recent Progress Patient-Stated? 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 RN documented as of this encounter Visit Diagnoses Not on filedocumented in this encounter Care Teams Field Operations Technician Relationship Specialty Start Date End Date Shaheed Rm DO [address] [facility] [address] [place] [address] PCP - General INTERNAL MEDICINE 01/29/18 Kain Singh MD [facility]. [address] [place] [address] [place] Drafter Assistant CARDIOVASCULAR DISEASE 02/22/18 documented as of this encounter
--- OUTSIDE RECORDS SUMMARY | 2024-10-16 12:41 | XMS_ITS | Encounter Summary ---
Author Organization [facility] Address On license of [facility] [place] [address] Care Team Providers Care Sales And Service Agent Name Role Phone Shaheed Rm DO Primary Care Provider [phone] Kain Singh MD Unavailable [phone] Encounter Details Date Type Department Care Team (Latest Contact Info) Description 05/21/2018 Abstract [facility] , Nadine Peres MD Social History Tobacco Use Types Packs/Day Years Used Date Smoking Tobacco: Every Day Cigars Smokeless Tobacco: Never Comments:3 cigars daily Alcohol Use Standard Drinks/Week Comments No 0 (1 standard drink = 0.6 oz pur e alcohol) Sex and Gender Information Value Date Recorded Sex Assigned at Not on file Legal Sex Male 4:56 PM CDT Gender Identity Not on file Sexual Orientation Not on file documented as of this encounter Plan of Treatment Not on file documented as of this encounter Visit Diagnoses Not on filedocumented in this encounter Additional Health Concerns Infection Onset Date Last Indicated Resolved Time COVID-19 Rule Out 03/02/2024 03/02/2024 03/02/2024 6:19 PM CDT documented as of this encounter Care Teams Sales And Service Agent Relationship Specialty Start Date End Date Shaheed Rm DO [address] [facility] [address] [place] [address] PCP - General INTERNAL MEDICINE 01/29/18 Kain Singh MD [facility]. [address] [address] Cyn Boatswains Mate CARDIOVASCULAR DISEASE 02/22/18 documented as of this encounter
--- OUTSIDE RECORDS SUMMARY | 2024-10-16 12:41 | XMS_ITS | Encounter Summary ---
Author Organization [facility] Address [facility] [place] [address] Care Team Providers Care Electric Deicer Inspector Name Role Phone Shaheed Rm DO Primary Care Provider [phone] Kain Singh MD Unavailable [phone] Encounter Details Date Type Department Care Team (Late st Contact Info) Description 12/06/2012 Abstract [facility] CONVERSION [address] [place] [address] , Generic ConversionMD Social History Tobacco Use Types Packs/Day Years Used Date Smoking Tobacco: Smoker, Current Status Unknown Sex and Gender Information Value Date Recorded [...] documented as of this encounter Care Teams Electric Deicer Inspector Relationship Specialty Start Date End Date Shaheed Rm DO [address] [place] [address] PCP - General INTERNAL MEDICINE 01/29/18 Kain Singh MD [facility]. [address] [address] [place] [address] (work) Cyn [employer] Network Architect CARDIOVASCULAR DISEASE 02/22/18 documented as of this encounter
--- OUTSIDE RECORDS SUMMARY | 2024-10-16 12:41 | XMS_ITS | Encounter Summary ---
Author Organization [facility] Address [facility] [place] [address] Care Team Providers Care Claims Technician Name Role Phone Shaheed Rm DO Primary Care Provider [phone] Kain Singh MD Unavailable [phone] Encounter Details Date Type Department Care Team (Late st Contact Info) Description 03/14/2018 Abstract [facility] [address] [place], [place] [id number] , Generic ConversionMD Social History Tobacco Use [...] documented as of this encounter Care Teams Claims Technician Relationship Specialty Start Date End Date Shaheed Rm DO [address] [facility] [address] [place] [address] PCP - General INTERNAL MEDICINE 01/29/18 Kain Singh MD [address] [facility] [place] [address] [place] Emergency Detail Driver CARDIOVASCULAR DISEASE 02/22/18 documented as of this encounter
--- OUTSIDE RECORDS SUMMARY | 2024-10-16 12:41 | XMS_ITS | Encounter Summary ---
Author Organization [facility] Address [facility] [place] [address] Care Team Providers Care Organizational Effectiveness Consultant Name Role Phone Shaheed Rm DO Primary Care Provider [phone] Kain Singh MD Unavailable [phone] Encounter Details Date Type Department Care Team (Late st Contact Info) Description 10/16/2024 12:30 PM CDT Hospital Encounter [facility] [address] [place] [address] Brennan Franklin MD [address] [facility] [address] [place] [address] Arrived Social History Tobacco Use Types Packs/Day Years [...] from your doctor or pharmacy? Rarely 03/07/2024 [facility] Utilities Answer Date Recorded In the [...] How often do you attend chur or gnosticist services? Never 03/07/2024 Do you belong to any clubs o r organizations such as amish groups, unions, fraternal or athletic groups, or [...] Recorded Patient Health Questionnaire-2 Score 0 03/03/2024 [facility] of Occupat ional Health - Occupational Stress [...] place to sleep or slept in a long-term (including now)? No 02/14/2023 Housing Stability Vital Sign Answer Abdi e Recorded In the last 12 months, was t here a time when you were not able to pay the mortgage or rent on time? No 03/07/2024 In the past 12 months, how m any times have you moved where you were living? 0 03/07/2024 At any time in the past 12 m [facility], were you homeless or living in a long-term (including now)? No 03/07/2024 Sex and Gender [...] PM CDT Tejas, Dawn E, N urse Auto Salvage Worker II Active * Are you blind or do you have serious difficulty seeing, even when wearing glasses? Answer Date of Assessment Author Status No 03/07/2024 4:06 PM CDT Dawn Lazaro N urse Auto Salvage Worker II Active * Do you have serious difficulty walking or climbing stairs? Answer Date of Assessment Author Status No 03/07/2024 4:09 PM CDT Dawn Lazaro N urse Auto Salvage Worker II Active * Do you have difficulty dressing or bathing? Answer Date of Assessment Author Status No 03/07/2024 4:09 PM CDT Dawn Lazaro N urse Auto Salvage Worker II Active * Because of a physical, mental, or emotional condition, do you have difficulty doing errands alone such as visiting a doctor's office or shopping? Answer Date of Assessment Author Status No 03/07/2024 4:09 PM CDT Dawn Lazaro N urse Auto Salvage Worker II Active documented as of this encounter Mental Status * Because of a physical, mental, or emotional condition, do you have serious difficulty concentrating, remembering, or making decisions? Answer Entry Date Author Status No 03/07/2024 4:09 PM CDT Dawn Lazaro N urse Auto Salvage Worker II Active documented in this encounter Plan of Treatment Pending Results Name Type Priority Associated Diagnoses Date /Time PTH - INTACT Lab Routine Abnormal results of kidney function studies Diabetes mellitus without complication ([facility]) 10/16/2024 12:34 PM CDT CBC, AUTO, NO DIFF Lab Routine Abnormal results of kidney function studies Diabetes mellitus without complication ([facility]) 10/16/2024 12:34 PM CDT RENAL FUNCTION PANEL Lab Routine Abnormal results of kidney function studies Diabetes mellitus without complication ([facility]) 10/16/2024 12:34 PM CDT Scheduled Orders Name Type Priority Associated Diagnoses Orde r Schedule PTH - INTACT Lab Routine Abnormal results of kidney function studies Diabetes mellitus without complication ([facility]) Once for 1 Occurrences starting 10/16/2024 until 10/16/2024 CBC, AUTO, NO DIFF Lab Routine Abnormal results of kidney function studies Diabetes mellitus without complication ([facility]) Once for 1 Occurrences starting 10/16/2024 until 10/16/2024 RENAL FUNCTION PANEL Lab Routine Abnormal results of kidney function studies Diabetes mellitus without complication ([facility]) Once for 1 Occurrences starting 10/16/2024 until 10/16/2024 documented as of this encounter Goals Goal Patient Goal Type Associated Problems Recent Progress Patient-Stated? 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 RN documented as of this encounter Visit Diagnoses Diagnosis Abnormal results of kidney function studies Nonspecific abnormal results of kidney function study Diabetes mellitus without complication ([facility]) Type II or unspecified type diabetes mellitus without mention of complication, not stated as uncontrolled documented in this encounter Care Teams Organizational Effectiveness Consultant Relationship Specialty Start Date End Date Shaheed Rm DO [address] [facility] [address] [place] [address] PCP - General INTERNAL MEDICINE 01/29/18 Kain Singh MD [address] [facility] [address] [place] [address] [place] Animal Daycare Provider CARDIOVASCULAR DISEASE 02/22/18 documented as of this encounter
--- NOTE | 2024-11-11 19:30 | P.SLEEP_ITS ---
Sleep Study Date of Study: 10/16/24 Ordering Provider: Eve Srinivasan DO Interpreting Physician: Kezia Mai MD Sleep Study Type: CPAP Titration Height: 1.75 m Weight: 113.398 kg Body Mass Index: 36.9 Neck Circumference (inches): 18.5 Dwight: 0 Reason for Sleep Study Known obstructive sleep apnea, * 03/26/2022 split night study with baseline AHI 20.8, lowest saturation 81%, no optimal pressure found, fragmented sleep Sleep History Ronnell Mcbride is a 69-year-old male with known obstructive sleep apnea who had a split night study in Mar 2024. n that study, he was titrated from CPAP 5 to 15 with EPR, no optimal pressure noted, and appearance of central apneas when he was supine. His additional medical co-morbidities include hypertension, diabetes, congestive heart failure, atrial fibrillation s/p ablation and chronic narcotic. He has been noted to have sleep irregularities when he was admitted at [facility]. He has used PAP in 2 previous hospitalizations but declined using it at home before he understood how significant his problem was. Now he is more motivated. The patient denies having trouble sleeping when he has a cold. The patient denies waking up gasping for air throughout the night. He occasionally has breathing problems at night observed by himself or others. He denies sweating excessively at night. He denies having heart palpitations or irregular heartbeats during the night. He occasionally falls asleep during the day but never while driving. He denies sleep paralysis, cataplexy and hypnagogic / hypnopompic hallucinations. He denies having trouble at school or work due to sleepiness. He denies feeling afraid of going to sleep. He denies having nightmares. He occasionally remembers his dreams. He denies having thoughts racing through his mind. He denies feeling sad, depressed or anxious. Oral he denies having muscular tension. He denies noticing parts of his body jerk. He denies kicking during the night. He denies having crawling and aching feelings in his legs and denies having leg pain during the night. He goes to bed at midnight on weekdays and at 9:00 p.m. on the weekends. He wakes up 2-3 times throughout the night to urinate and is able to fall back asleep within 30 minutes. He wakes up at 6:00 a.m. on weekdays and at 4:00 a.m. on the weekends. He typically gets 8 hours of sleep per night. He will stay in bed for 30 minutes after waking up in the morning. He currently lives alone. He is a former smoker. He consumes 2 alcoholic beverages per week. He denies recreational drug use. [facility] Past Medical History Medical History (Updated 11/11/24 @ 19:56 by Kezia Mai MD) AMANDEEP (obstructive sleep apnea) CLINT (acute kidney injury) Bilateral hip joint arthritis Diabetes Traumatic tear of right rotator cuff Arthritis High cholesterol Hearing loss Wears glasses Full thickness rotator cuff tear Fractured rib Heartburn Heart murmur Mitral valve insufficiency Hyperlipidemia Pulmonary embolism 03/19/2018 Back pain Hypertension Type 2 diabetes mellitus Surgical History Surgical History Status post left hip replacement S/P rotator cuff repair Right- 2019 History of appendectomy Family History Family History Mother Diabetes mellitus Depression Father Hypertension Acute myocardial infarction, Onset Age: 55 Other Heart disease High cholesterol Social History Social History Social History: caffeine 1 cup Smoking packs per day: 2 Smoking cigarettes per day: 40.0 Years smoked: 10 Smoking pack-years: 20.00 Smoking status: Former smoker Tobacco type: cigarettes and cigars Smoking end date: 07/16/16 Alcohol intake: former Drinks per week: 2 Alcohol use details: Pt drinks occasionally. 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 Gender identity (if verbalized by the patient): Male Spiritual care concerns: No Medications Home Medications ?Medication ?Instructions ?Recorded ?Confirmed ?Type morphine 15 mg immediate release 15 mg PO PRN PRN Pain 07/01/19 10/21/24 History tablet apixaban 5 mg tablet (Eliquis) 5 mg PO BID 03/13/24 10/21/24 History bimatoprost 0.01 % eye drops 1 drp EACH EYE DAILY 03/13/24 10/21/24 History (Lumigan) metoprolol succinate 25 mg 25 mg PO DAILY 03/13/24 10/21/24 History tablet,extended release 24 hr metformin 1,000 mg tablet 1,000 mg PO BID #180 tabs 06/24/24 10/21/24 Rx brimonidine 0.15 % eye drops drp ophthalmic (eye) 08/06/24 10/21/24 History empagliflozin 10 mg tablet 10 mg PO DAILY #90 tabs 08/06/24 10/21/24 Rx (Jardiance) magnesium oxide 400 mg (241.3 mg mg PO 08/06/24 10/21/24 History magnesium) tablet lisinopril 40 mg tablet 40 mg PO DAILY #90 tabs 08/28/24 10/21/24 Rx omeprazole 20 mg capsule,delayed See Rx Instructions .Route 09/22/24 10/21/24 Rx release .COMPLEX #90 caps amlodipine 5 mg tablet See Rx Instructions .Route 10/06/24 10/21/24 Rx .COMPLEX #90 tabs atorvastatin 20 mg tablet See Rx Instructions .Route 10/06/24 10/21/24 Rx .COMPLEX #90 tabs zolpidem 10 mg tablet 10 mg PO QHS #1 tablet 10/15/24 10/21/24 Rx morphine 30 mg capsule,extended 30 mg PO DAILY 10/20/24 10/21/24 History release 24 hr multiphase (Avinza) chlorthalidone 25 mg tablet 25 mg PO DAILY #30 tabs 10/22/24 10/22/24 Rx Sleep Procedure A full night polysomnogram using the [employer] multi-channel system recorded the standard physiologic parameters including EEG, EOG, submentalis EMG, anterior tibialis EMG, EKG, body position, nasal and oral airflow using PAP device flow signal. Respiratory parameters of chest and abdominal movements were recorded with Respiratory Inductance Plethysmography belts. Oxygen saturation was recorded by pulse oximetry. Video monitoring was also performed. Sleep stages, periodic limb movements, and EEG arousals were scored in 30 second epochs according to the criteria of the AASM Scoring Manual. The Apnea-Hypopnea Index was calculated using CMS guidelines for definition of hypopnea with 4% O2 desaturations while scoring respiratory events. He uses own home mask, a ResMed Quattro air fullface mask with heated humidity, initial pressure was CPAP 6 cm, increased to 8 cm, 10 cm, 12 cm, 13 cm and 14 cm. At CPAP 13 cm, the patient spent 156 minutes in bed, 56.5 minutes awake, 79 minutes in non-REM and 20.5 minutes in REM. Sleep efficiency was 63.8%. The residual apnea-hypopnea index was 4.8 and the lowest saturation was 89%. Patient had REM in the left lateral position. Sleep Architecture The total recording time was 407.8 minutes. The total sleep time was 298.0 minutes. Sleep latency was 5.3 minutes. REM latency was 19.0 minutes. Sleep efficiency was 73.1%. The patient had 43 awakenings for an awakening index of 8.7. Wake after Sleep Onset time was 104.0 minutes. The patient spent 46.5 minutes, 15.6% of total sleep time in Stage N1. The patient spent 202.0 minutes, 67.8% in Stage N2. The patient spent 2.5 minutes, 0.8% in Stage N3. The patient spent 47.0 minutes, 15.8% in Stage REM. Respiratory Analysis The patient had 61 hypopneas, 27 obstructive apneas, 2 mixed apneas, and 19 central apneas for an overall Apnea Hypopnea Index of 21.9 events per hour. The REM Apnea Hypopnea Index was 39.6. The NREM Apnea Hypopnea Index was 18.6. The patient had a Central Apnea Hypopnea Index of 3.8. There were no Respiratory Effort Related Arousals. The Respiratory Disturbance Index is 27.4 events per hour. There was no evidence of [place] Respirations. Arousals There were 130 total arousals for an arousal index of 26.2. There were 44 spontaneous arousals for an index of 8.9. There were 23 arousals due to respiratory events for an index of 4.6. There were 59 arousals due to periodic limb movements for an index of 11.9. There were 5 arousals due to isolated limb movements for an index of 1.0. Periodic Limb Movements The patient had 25 isolated limb movements with an index of 5.0. The patient had 348 periodic limb movements with index of 70.1. Patient had a total of 373 limb movements with a total limb movement index of 75.1. Oximetry Data The patient had an average oxygen saturation of 94.1% in sleep with a minimum oxygen saturation of 83% and a maximum oxygen saturation of 99%. The patient had 100 oxygen desaturations that were 4% or greater resulting in an Oxygen Desaturation Index of 20.1. The patient spent 1.7 minutes, 0.4% of total sleep time with an oxygen saturation below 88%. Snoring Profile Snoring was mild and intermittent, eliminated at the end of the titration. Cardiac Profile The EKG showed normal sinus rhythm. The patient had an average pulse rate of 59.1 bpm with a minimum pulse rate of 54 bpm and a maximum pulse rate of 70 bpm. No arrhythmias noted. EEG Profile EEG was unremarkable, no evidence of seizures. Assessment and Plan Assessment and Plan (1) AMANDEEP (obstructive sleep apnea): Code(s): G47.33 - Obstructive sleep apnea (adult) (pediatric) Status: Acute Assessment and Plan: This full night CPAP titration on 10/16/2024 shows an optimal pressure CPAP 13 cm using his own mask, a ResMed Quattro Air full face mask and heated humidity. At this pressure, the patient spent 156 minutes in bed, 56.5 minutes awake, 79 minutes in non-REM and 20.5 minutes in REM. Sleep efficiency was 63.8%. The residual apnea-hypopnea index was 4.8 and the lowest saturation was 89%. REM occurred in the left lateral position. The patient should be prescribed this ResMed equipment as well as tubing, filters and reservoir. This should be used with all episodes of sleep. Compliance should be reviewed within 31-90 days of starting therapy for usage greater than 4 hours per night greater than 70% of the nights. The patient should be asked about symptoms such as excessive daytime sleepiness, quality of sleep, decreased nocturia, increased mental functioning such as memory, mood, and concentration. Had a large number of limb movements, the total limb movement index was 75.1, the periodic limb movement arousal index was 11.9 which is within the normal range, normal is limb movement arousals below 15 events per hour. His sleep survey indicates that he has is not have kicking or uncomfortable feelings in his legs at night. This is clinically not an issue. BMI is 36.9. Weight management is advised. Clinical data suggests that weight loss of 10% can reduce the severity of respiratory events and snoring and improve AHI by as much as 25%. Data The data obtained during this sleep study is adequate for interpretation. Certification This sleep study has been reviewed by a board certified sleep medicine bryanna guzman.
[2024-11-11 20:25] VITALS: BMI 36.9
== END 2024-10-17 06:44 | disposition home or self-care (01) ==
LOC: ANHCSM 12:24
PROVIDERS: PCP Internal Medicine; Visit Provider Family Medicine
DX: G47.33 Obstructive sleep apnea (adult) (pediatric) (principal)
CPT/HCPCS: 95811